=== PATIENT | male | born 1940 | race Caucasian/White ===

== ENCOUNTER 2020-09-16 13:20 | Inpatient (IN) ==
[2020-09-16] MEDS ORDERED: ONDANSETRON 4 MG/2 ML VIAL IV ONE ×2 (13:59→17:33)
[2020-09-16] MEDS: HYDROmorphone 0.5 MG/0.5 ML SYRINGE IV PRN ×4 (14:18→19:44)
[2020-09-16 14:23] LABS: Basophils # (Auto) 0.06 K/mcL (0.00-0.20); Basophils % (Auto) 0.5 % (0.0-2.0); Eosinophils # (Auto) 0.17 K/mcL (0.00-0.70); Eosinophils % (Auto) 1.4 % (0.0-7.0); Hematocrit 30.2 % (41.0-55.0); Lymphocytes # (Auto) 1.82 K/mcL (1.50-4.80); Lymphocytes % (Auto) 15.4 % (15.0-49.0); Mean Corpuscular HGB Conc 33.1 g/dL (31.0-36.0); Mean Platelet Volume 9.5 fL (7.4-10.4); Monocytes # (Auto) 0.79 K/mcL (0.10-0.90); Monocytes % (Auto) 6.7 % (1.0-12.0); Platelet Count 197 K/mcL (140-440); RBC 3.47 M/mcL (4.50-5.90); Red Cell Distribution Width 14.2 % (11.5-14.5); WBC 11.8 K/mcL (4.5-11.0)
[2020-09-16 14:30] LABS: POC Pro Time 34.4 sec (11.9-14.5)
[2020-09-16] MEDS ORDERED: 0.9 % SODIUM CHLORIDE 500 ML IV ONE ×2 (14:45→20:05)
[2020-09-16 14:46] LABS: ALT/SGPT 13 U/L (<40); AST/SGOT 18 U/L (<40); Albumin 2.9 gm/dL (3.2-5.2); Albumin/Globulin Ratio 0.9 (1.0-2.3); Alkaline Phosphatase 102 U/L (39-117); Bilirubin,Total 0.3 mg/dL (0.1-1.0); Blood Urea Nitrogen 80 mg/dL (8-23); Calcium 7.6 mg/dL (8.6-10.4); Carbon Dioxide 22 mmol/L (22-30); Chloride 86 mmol/L (96-108); Globulin 3.4 gm/dL (2.2-3.7); Glomerular Filtration Rate 3; Glucose 105 mg/dL (70-105)
[2020-09-16 14:56] LABS: Partial Thromboplastin Time 35.1 sec (20.0-37.0)
--- NOTE | 2020-09-16 15:54 | Emergency Department Note ---
Weakness HPI General Chief complaint: Weakness Stated complaint: weakness Time Seen by Provider: 09/16/20 13:48 Source: patient Mode of arrival: ambulatory Limitations: physical limitation History of Present Illness HPI Narrative: Narrative: Patient presents to the emergency room telling triage that he is weak, poor p.o., nausea and vomiting with some concern of having biopsies on his legs yesterday, etc. He tells me specifically that he has thrown up blood several times since 10 AM and did have a little bit of vomiting before that. He is running out of his pain medicines and complains of the pain in his legs as very severe and this is his primary complaint at the time of my interview. No fevers chills or sweats. He also has been somewhat shaky. He was using hydrocodone which he gets from Dr. Mercedes and I believe another physician as well and he has been needing them about every 4-6 hours but his last was early this morning. He reports being generally normally mobile at home. He does feel dry in the mouth and asked for some water. Related Data Home Medications Medication Instructions Recorded Confirmed amlodipine 5 mg PO BID 02/22/15 03/29/20 prednisone 5 mg PO DAILY 03/30/15 03/29/20 losartan 25 mg PO BID 05/27/19 03/29/20 clindamycin HCl 300 mg PO QID 03/29/20 03/29/20 tacrolimus 1 mg PO Q12H 03/29/20 03/29/20 Previous Rx's Medication Instructions Recorded oxycodone-acetaminophen 1 tab PO Q4H PRN #30 tab 06/02/19 B complex-vitamin C-folic acid 0.8 1 tab PO QDAY #90 tab 06/14/19 mg tablet gentamicin 0.1 % topical cream 1 applic TOPICAL DIRECTED #15 g 02/11/20 cephalexin [Keflex] 500 mg PO QID #40 cap 03/29/20 ondansetron HCl [Zofran] 4 mg PO Q6H PRN #20 tab 03/29/20 furosemide 80 mg tablet 80 mg PO QAM #90 tab 07/10/20 calcium acetate 667 mg tablet 667 mg PO TID #270 tab 09/13/20 Allergies Allergy/AdvReac Type Severity Reaction Status Date / Time Banana [BANANA] Allergy Severe Swollen Verified 03/31/20 09:18 Tongue edgar flavor [EDGAR FLAVOR] Allergy Severe Throat Verified 03/31/20 09:18 Swells Iodinated Contrast Media Allergy Severe RT EYE Verified 03/31/20 09:18 CAME OUT OF SOCKET/SEVERE HEADACHE mycophenolate mofetil Allergy Severe ACUTE Verified 03/31/20 09:18 [From CELLCEPT] RENAL FAILURE atorvastatin AdvReac Intermediate Nausea Verified 03/31/20 09:18 Review of Systems ROS ROS Narrative: Narrative: No fevers chills sweats Sometimes a little bit of blurry vision but no double vision No sore throat or runny nose No chest pain No cough or shortness of breath No nausea vomiting diarrhea. 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 He does have multiple skin lesions with multiple skin cancers. He cannot remember which kind. He had biopsies on his legs recently No headaches. He does feel weak and dizzy and lightheaded around the time of the vomiting especially Denies anxiety and depression. 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) ESRD (end stage renal disease) on dialysis (Chronic) Medical History (Updated 09/16/20 @ 19:27 by Óscar Ndiaye DO) Dialysis patient (Chronic) Surgical History History of heart transplant (Acute) 2005 History of open heart surgery (Acute) History of surgery (Acute) "tawanna in leg" History of surgery (Acute) HD cath placement PD cath placement History of surgery (Acute) 06/02/2019-removal of tunneled dialysis catheter History of surgery (Acute) 06/02/2019-removal of HD catheter left subclavian No pertinent past surgical history (Inactive) Family History Heart disease Father Mother Hypertension Mother Social History Smoking Status: Never smoker Alcohol Intake Frequency: does not drink Substance Use: does not use Exam Narrative Narrative: Narrative: General Limitations: physical limitation General appearance: Present alert, cachectic, in no apparent distress, nontoxic and other (Somewhat pasty ashen general appearance but he is interactive and alert without distress.) Head Head: Present atraumatic and normocephalic Eye Eye: Present normal appearance, PERRL and EOMI ENT ENT: Present normal oropharynx and mucous membranes dry Neck Neck: Present trachea midline; Absent lymphadenopathy and thyromegaly Chest Chest: Present symmetric chest wall rise Respiratory Respiratory: Present normal lung sounds bilaterally; Absent respiratory di stress, rales/crackles, wheezes, stridor, accessory muscle use and prolonged expiratory phase Cardiovascular Cardiovascular: Present regular rate and normal rhythm; Absent systolic murmur and diastolic murmur Adbominal Abdominal: Present soft and other (Peritoneal dialysis cath in the right lower quadrant a little bit right of midline.); Absent distention, tenderness, guarding, rebound, rigidity, organomegaly and mass Extremities Extremities: Present other (Both lower extremities were moderately tightly wrapped. Bandages were removed. He has blue foam/gauze adherent to proximately 4-5 different biopsy sites or wounds/skin lesions. No surrounding erythema or swelling. No unusual warmth. No pitting edema that is visible currently.); Absent pedal edema, pretibial edema, calf tenderness and cyanosis Back Back: Absent CVA tenderness (R), CVA tenderness (L) and spinous process tenderness Neurological Neurological: Present alert and oriented X3 Psychiatric Psychiatric: Present normal affect and serious; Absent depressed, agitated, anxious and poor eye contact Skin Skin: Present cool and dry; Absent cyanosis and pallor Course Vital Signs Vital signs: Vital Signs Temperature 97.5 F 09/16/20 13:21 Pulse Rate 90 09/16/20 13:21 Respiratory Rate 18 09/16/20 13:21 Blood Pressure 156/81 09/16/20 13:21 Pulse Oximetry (%) 99 01/23/21 13:21 Temperature 97.5 F 09/16/20 13:21 Pulse Rate 86 09/16/20 18:53 Respiratory Rate 16 09/16/20 18:53 Blood Pressure 138/76 09/16/20 18:01 Pulse Oximetry (%) 94 09/16/20 18:53 MDM MDM Narrative Medical decision making narrative: Narrative: 1:50 PM - interviewed and examined. Quite with it but complaining of a lot of pain. I am okay and going ahead with pain medication for his lower extremities. His legs were unwrapped and we did find multiple sites that appeared to have had recent biopsies were small ulcers. No edema. It seemed that the bandages were a significant amount of tightness. They will be rewrapped. With gross hematochezia several times will do multiple labs as well and coags. EKG demonstrates sinus rhythm around 88 bpm. No ACS. Borderline prolonged QTC. Labs include an anemia of 10.0 and 30.2. Mild hyponatremia of 129. Severely elevated creatinine at 13.4. INR elevated at 3.0. Lactic acid normal at 1.5. LFTs again normal. Total protein is normal at 6.3 which is mid range. Albumin mildly low at 2.9 (3.2-5.2). Globulin midrange at 3.4. Lipase normal at 22. Several hours later a repeat hematocrit is 28 showing some decrease. I thought this was after 500 cc of infused normal saline but I was corrected by nursing staff that because he would not keep his arm straight he only had 100 cc infused. He had additional nausea. Early on was given ondansetron an initial dose (in his first hour after arriving). This seemed to be fairly helpful. Several hours later additional nausea and near retching started again. Promethazine 12.5 was given. 4:45 PM - I spoke with Dr. Luna, bpm analyst, on-call for Dr. Keller. He has reviewed the chart. Patient recently saw Dr. Keller and had very severe hyp erparathyroidism (level around 1999) and Dr. Keller had ordered additional calcitriol and ordered an increase of the Sensipar from 30 every other day to daily. He inquired about patient's potassium which is normal at 4.0. He indicates that if patient is stable in every other way, the creatinine is not the driver material handler that he has to be admitted. If he needs to be admitted for other purposes that is ok and dialysis options could be reconsidered. The hyperparathyroidism could explain some of the abdominal discomforts. On Friday patient and/or his are to call to get in with the peritoneal dialysis to problem solve and/or determine additional steps. 5:00 PM -I spoke with the hospitalist, regarding patient's elevated INR. He asked about medications, cirrhosis, supplements etc. We did not come to the conclusion as to the potential contributing cause or source for his elevated INR. 5:22 PM - spoke with patient's , Tatiana, . * She reports that he usually is quite faithful with his peritoneal dialysis but was unable to do it last p.m. due to his discomforts and vomiting. He usually runs it for 10-1/2 hours and uses 4.5 alternating 4.25 in volume. * She is unaware of a medication from [facility], as she is the one who picks up his medications from the pharmacy and there were no other medications pending that she was aware of. (Patient indicated that there was one that they did not have in stock and were going to get.) So it appears that he has not been taking any Sensipar at this point in time. * She also is certain that he does not take any blood thinners. * She is concerned or has been concerned at times about him taking too much hydrocodone for the pain in his legs. He does not get regular hydrocodone's but he had been prescribed by Mindy after having the multiple biopsies on his legs and etc. She actually took them away from him to try to ration them out a little bit more as she was concerned about the Tylenol because he also takes large amounts of Tylenol. She does not know exactly how much he has been taking. * Regarding his leg pains she also reports that it was thought to be neuropathy at one point and he was on gabapentin but it lowered his blood pressure too much. He has not been tried on Lyrica. 5:41 PM - patient continued to have episodes that include some retching and nausea. He did have some bilious to very dark emesis. I will go ahead and repeat a POC Chem-8 to see the hematocrit. This will be the third blood test of stability there. A repeat dose of ondansetron given. 5:54 PM - with patient's elevated acetaminophen intake, review of the above, will add acetaminophen level. 6:03 PM - repeat INR, POC, 1.4. This is peculiar with the previous one of 3.0. Chart review from information received from what appears to be the wound clinic or dermatology clinic at [facility] included * positive for oxacillin resistant staph aureus on a wound or skin culture (pr esumably of the legs). = MRSA * C-reactive protein mildly elevated at 2.6. ESR elevated at 66. * Uric acid 6.1 * Prealbumin 29.3 * TSH elevated at 2.4. * A1c elevated at 5.3 * Lipid panel with a low HDL of 30, total cholesterol 146, triglycerides 188 and LDL of 179 * WBC normal at 10.8. Hemoglobin 10.6, hematocrit 33.6, platelet count 198. * Creatinine 13.3. Previous 1 in this record was from 02 June and was 10.2. * Carbon dioxide normal at 23. Anion gap elevated mildly at 19. * Calcium suppressed at 7.6. Total protein, albumin, globulin similar to today here. * LFTs, bilirubin, alkaline phosphatase, all similar to previous and normal. 7:06 PM - spoke with hospitalist, Dr. Tena, who asked for clarification from the bpm analyst whether or not peritoneal dialysis is adequate to help with his uremia. I spoke with Dr. Luna who believes that the peritoneal dialysis is adequate and he will put in orders for peritoneal dialysis. He will order the Sensipar. We (ED or hospitalist) will be in charge of ordering tacrolimus/Prograf (ordered). I asked about his muscle cramps. If we do not have quinine then there is not a whole lot. Calcium can be tried and I will order Tums 1000 mg once. Lab Data Result diagrams: 09/16/20 13:40 09/16/20 13:40 Labs: Lab Results 09/16/20 09/16/20 09/16/20 Range/Units 13:40 13:40 13:40 WBC 11.8 H (4.5-11.0) K/mcL RBC 3.47 L (4.50-5.90) M/mcL Hgb 10.0 L (13.5-16.5) g/dL Hct 30.2 L (41.0-55.0) % POC Hct (41-55) % MCV 87.0 (80.0-100.0) fL MCH 28.8 (26.0-34.0) pg MCHC 33.1 (31.0-36.0) g/dL RDW 14.2 (11.5-14.5) % Plt Count 197 (140-440) K/mcL MPV 9.5 (7.4-10.4) fL Neut % (Auto) 76.0 (38.0-78.0) % Lymph % (Auto) 15.4 (15.0-49.0) % Kimball % (Auto) 6.7 (1.0-12.0) % Eos % (Auto) 1.4 (0.0-7.0) % Baso % (Auto) 0.5 (0.0-2.0) % Lymph # (Auto) 1.82 (1.50-4.80) K/mcL Kimball # (Auto) 0.79 (0.10-0.90) K/mcL Eos # (Auto) 0.17 (0.00-0.70) K/mcL Baso # (Auto) 0.06 (0.00-0.20) K/mcL Absolute Neutrophils 8.99 H (1.80-8.00) K/mcL POC PT (11.9-14.5) sec POC INR (0.8-1.2) APTT (20.0-37.0) sec VBG Lactic Acid 1.5 (0.5-2.0) mmol/L POC Sodium (133-145) mEq/L Sodium 129 L (133-145) mmol/L POC Potassium (3.3-5.1) mEql/L Potassium 4.0 (3.3-5.1) mmol/L POC Chloride (96-108) mEq/L Chloride 86 L (96-108) mmol/L Carbon Dioxide 22 (22-30) mmol/L POC Total CO2 (22-30) mmol/L Anion Gap 21.0 H (8.0-16.0) POC BUN (6-20) mg/dL BUN 80 H (8-23) mg/dL Creatinine 13.4 H* (0.7-1.2) mg/dL POC Creatinine (0.6-1.2) mg/dL GFR Calculation 3 Glucose 105 (70-105) mg/dL POC Glucose (70-105) mg/dL Calcium 7.6 L (8.6-10.4) mg/dL POC WB Ioniz Calcium (1.16-1.32) mmEq/L Total Bilirubin 0.3 (0.1-1.0) mg/dL AST 18 (<40) U/L ALT 13 (<40) U/L Alkaline Phosphatase 102 (39-117) U/L Troponin T (<0.03) ng/mL Total Protein 6.3 (5.9-8.4) gm/dL Albumin 2.9 L (3.2-5.2) gm/dL Globulin 3.4 (2.2-3.7) gm/dL Albumin/Globulin Ratio 0.9 L (1.0-2.3) Lipase (7-60) U/L Acetaminophen ug/mL 09/16/20 09/16/20 09/16/20 Range/Units 13:40 13:40 13:40 WBC (4.5-11.0) K/mcL RBC (4.50-5.90) M/mcL Hgb (13.5-16.5) g/dL Hct (41.0-55.0) % POC Hct (41-55) % MCV (80.0-100.0) fL MCH (26.0-34.0) pg MCHC (31.0-36.0) g/dL RDW (11.5-14.5) % Plt Count (140-440) K/mcL MPV (7.4-10.4) fL Neut % (Auto) (38.0-78.0) % Lymph % (Auto) (15.0-49.0) % Kimball % (Auto) (1.0-12.0) % Eos % (Auto) (0.0-7.0) % Baso % (Auto) (0.0-2.0) % Lymph # (Auto) (1.50-4.80) K/mcL Kimball # (Auto) (0.10-0.90) K/mcL Eos # (Auto) (0.00-0.70) K/mcL Baso # (Auto) (0.00-0.20) K/mcL Absolute Neutrophils (1.80-8.00) K/mcL POC PT 34.4 H (11.9-14.5) sec POC INR 3.0 H (0.8-1.2) APTT 35.1 (20.0-37.0) sec VBG Lactic Acid (0.5-2.0) mmol/L POC Sodium (133-145) mEq/L Sodium (133-145) mmol/L POC Potassium (3.3-5.1) mEql/L Potassium (3.3-5.1) mmol/L POC Chloride (96-108) mEq/L Chloride (96-108) mmol/L Carbon Dioxide (22-30) mmol/L POC Total CO2 (22-30) mmol/L Anion Gap (8.0-16.0) POC BUN (6-20) mg/dL BUN (8-23) mg/dL Creatinine (0.7-1.2) mg/dL POC Creatinine (0.6-1.2) mg/dL GFR Calculation Glucose (70-105) mg/dL POC Glucose (70-105) mg/dL Calcium (8.6-10.4) mg/dL POC WB Ioniz Calcium (1.16-1.32) mmEq/L Total Bilirubin (0.1-1.0) mg/dL AST (<40) U/L ALT (<40) U/L Alkaline Phosphatase (39-117) U/L Troponin T 0.11 H* (<0.03) ng/mL Total Protein (5.9-8.4) gm/dL Albumin (3.2-5.2) gm/dL Globulin (2.2-3.7) gm/dL Albumin/Globulin Ratio (1.0-2.3) Lipase 22 (7-60) U/L Acetaminophen ug/mL 09/16/20 09/16/20 09/16/20 Range/Units 13:40 16:10 18:00 WBC (4.5-11.0) K/mcL RBC (4.50-5.90) M/mcL Hgb (13.5-16.5) g/dL Hct (41.0-55.0) % POC Hct 28 L (41-55) % MCV (80.0-100.0) fL MCH (26.0-34.0) pg MCHC (31.0-36.0) g/dL RDW (11.5-14.5) % Plt Count (140-440) K/mcL MPV (7.4-10.4) fL Neut % (Auto) (38.0-78.0) % Lymph % (Auto) (15.0-49.0) % Kimball % (Auto) (1.0-12.0) % Eos % (Auto) (0.0-7.0) % Baso % (Auto) (0.0-2.0) % Lymph # (Auto) (1.50-4.80) K/mcL Kimball # (Auto) (0.10-0.90) K/mcL Eos # (Auto) (0.00-0.70) K/mcL Baso # (Auto) (0.00-0.20) K/mcL Absolute Neutrophils (1.80-8.00) K/mcL POC PT 16.2 H (11.9-14.5) sec POC INR 1.4 H (0.8-1.2) APTT (20.0-37.0) sec VBG Lactic Acid (0.5-2.0) mmol/L POC Sodium 128 L (133-145) mEq/L Sodium (133-145) mmol/L POC Potassium 4.2 (3.3-5.1) mEql/L Potassium (3.3-5.1) mmol/L POC Chloride 89 L (96-108) mEq/L Chloride (96-108) mmol/L Carbon Dioxide (22-30) mmol/L POC Total CO2 26 (22-30) mmol/L Anion Gap (8.0-16.0) POC BUN 95 H (6-20) mg/dL BUN (8-23) mg/dL Creatinine (0.7-1.2) mg/dL POC Creatinine 13.9 H* (0.6-1.2) mg/dL GFR Calculation Glucose (70-105) mg/dL POC Glucose 102 (70-105) mg/dL Calcium (8.6-10.4) mg/dL POC WB Ioniz Calcium 0.88 L (1.16-1.32) mmEq/L Total Bilirubin (0.1-1.0) mg/dL AST (<40) U/L ALT (<40) U/L Alkaline Phosphatase (39-117) U/L Troponin T (<0.03) ng/mL Total Protein (5.9-8.4) gm/dL Albumin (3.2-5.2) gm/dL Globulin (2.2-3.7) gm/dL Albumin/Globulin Ratio (1.0-2.3) Lipase (7-60) U/L Acetaminophen 12.3 ug/mL 09/16/20 Range/Units 18:00 WBC (4.5-11.0) K/mcL RBC (4.50-5.90) M/mcL Hgb (13.5-16.5) g/dL Hct (41.0-55.0) % POC Hct 29 L (41-55) % MCV (80.0-100.0) fL MCH (26.0-34.0) pg MCHC (31.0-36.0) g/dL RDW (11.5-14.5) % Plt Count (140-440) K/mcL MPV (7.4-10.4) fL Neut % (Auto) (38.0-78.0) % Lymph % (Auto) (15.0-49.0) % Kimball % (Auto) (1.0-12.0) % Eos % (Auto) (0.0-7.0) % Baso % (Auto) (0.0-2.0) % Lymph # (Auto) (1.50-4.80) K/mcL Kimball # (Auto) (0.10-0.90) K/mcL Eos # (Auto) (0.00-0.70) K/mcL Baso # (Auto) (0.00-0.20) K/mcL Absolute Neutrophils (1.80-8.00) K/mcL POC PT (11.9-14.5) sec POC INR (0.8-1.2) APTT (20.0-37.0) sec VBG Lactic Acid (0.5-2.0) mmol/L POC Sodium 128 L (133-145) mEq/L Sodium (133-145) mmol/L POC Potassium 4.1 (3.3-5.1) mEql/L Potassium (3.3-5.1) mmol/L POC Chloride 89 L (96-108) mEq/L Chloride (96-108) mmol/L Carbon Dioxide (22-30) mmol/L POC Total CO2 25 (22-30) mmol/L Anion Gap (8.0-16.0) POC BUN 94 H (6-20) mg/dL BUN (8-23) mg/dL Creatinine (0.7-1.2) mg/dL POC Creatinine 14.0 H* (0.6-1.2) mg/dL GFR Calculation Glucose (70-105) mg/dL POC Glucose 105 (70-105) mg/dL Calcium (8.6-10.4) mg/dL POC WB Ioniz Calcium 0.89 L (1.16-1.32) mmEq/L Total Bilirubin (0.1-1.0) mg/dL AST (<40) U/L ALT (<40) U/L Alkaline Phosphatase (39-117) U/L Troponin T (<0.03) ng/mL Total Protein (5.9-8.4) gm/dL Albumin (3.2-5.2) gm/dL Globulin (2.2-3.7) gm/dL Albumin/Globulin Ratio (1.0-2.3) Lipase (7-60) U/L Acetaminophen ug/mL Discharge Plan Patient/Caregiver Discharge Instructions Pt seen by INSIDE SOLAR SALES CONSULTANT/PA only: No Clinical Impression: Hematemesis with nausea, Elevated INR, Accidental acetaminophen overdose, Bilateral leg pain, Immunosuppressed status, MRSA (methicillin resistant staph aureus) culture positive, Bilateral leg cramps Patient Disposition: Xfer As Inpt ([facility]) Follow up with: Mainor Mercedes MD [Primary Care Provider] - Prescriptions: No Action Dialyvite 800 0.8 mg tablet 1 tab PO QDAY Qty: 90 RF: 4 gentamicin 0.1 % cream 1 applic TOPICAL DIRECTED Qty: 15 RF: 11 furosemide 80 mg tablet 80 mg PO QAM Qty: 90 RF: 4 calcium acetate 667 mg tablet 667 mg PO TID Qty: 270 RF: 4 amlodipine 2.5 MG tablet 5 mg PO BID RF: 0 prednisone 5 MG tablet 5 mg PO DAILY RF: 0 losartan 25 MG tablet 25 mg PO BID RF: 0 oxycodone-acetaminophen 1 TAB tablet 1 tab PO Q4H PRN (Reason: Pain) Qty: 30 RF: 0 clindamycin HCl 300 mg Capsule 300 mg PO QID RF: 0 tacrolimus 0.5 mg Capsule 1 mg PO Q12H RF: 0 cephalexin [Keflex] 500 mg capsule 500 mg PO QID Qty: 40 RF: 0 ondansetron HCl [Zofran] 4 mg tablet 4 mg PO Q6H PRN (Reason: nausea and vomiting) Qty: 20 RF: 0
[2020-09-16] MEDS ORDERED: PROMETHAZINE 25 MG/ML VIAL IV ONE (16:10)
[2020-09-16 16:25] LABS: POC Blood Urea Nitrogen 95 mg/dL (6-20); POC CO2 26 mmol/L (22-30); POC Calcium, Ionized 0.88 mmEq/L (1.16-1.32); POC Chloride 89 mEq/L (96-108); POC Creatinine 13.9 mg/dL (0.6-1.2); POC Glucose, Random 102 mg/dL (70-105); POC Hematocrit 28 % (41-55); POC Potassium 4.2 mEql/L (3.3-5.1); POC Sodium 128 mEq/L (133-145)
[2020-09-16 18:18] LABS: POC Blood Urea Nitrogen 94 mg/dL (6-20); POC CO2 25 mmol/L (22-30); POC Calcium, Ionized 0.89 mmEq/L (1.16-1.32); POC Chloride 89 mEq/L (96-108); POC Glucose, Random 105 mg/dL (70-105); POC Hematocrit 29 % (41-55); POC INR 1.4 (0.8-1.2); POC Potassium 4.1 mEql/L (3.3-5.1); POC Pro Time 16.2 sec (11.9-14.5); POC Sodium 128 mEq/L (133-145)
[2020-09-16] MEDS ORDERED: CALCIUM CARBONATE 500 MG TAB.CHEW CHEWED ONE (19:24)
[2020-09-16] MEDS ORDERED: ONDANSETRON 4 MG/2 ML VIAL IV PRN (20:05)
[2020-09-16] MEDS ORDERED: oxyCODONE HCL 5 MG TABLET PO PRN (20:05)
[2020-09-16] MEDS ORDERED: HYDROmorphone 0.5 MG/0.5 ML SYRINGE IV PRN (20:05)
--- NOTE | 2020-09-16 20:52 | Internal Med History&Physical ---
HPI History of Present Illness Patient information: Note initiated : 09/16/20 at 8:22 pm Service Date, if different from initiated Date: [] Patient: Jony Marie a 79 y/o M admitted on for weakness. Chief Complaint: [leg pain] History of present illness: Mr. 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 The patient also reported seeing blood in his vomitus. The patient primary concern is lower extremity pain which is most severe at the site of the nonhealing wound in high right calf. He has been taking oral oxycodone-acetaminophen for the pain. When I saw the patient he had recently received IV opioids and was trying to sleep. He also does not know his medications well and referred me to discuss them with his . I tried to call his a couple times on the night of admission but there was no answer. In the ED the patient had stable vitals, laboratory workup was remarkable for mild leukocytosis, slight downward trend of hemoglobin compared to prior labs, low sodium, elevated troponin (.11). EKG does not show any acute ischemic changes. Tylenol level is not elevated. The patient was admitted for intractable nausea and vomiting, pain management and workup in possible causes of these symptoms. Review of Systems All systems: reviewed and no additional remarkable complaints except as stated Constitutional Constitutional: Present anorexia and weakness Cardiovascular Cardiovascular: Present leg ulcers; Absent chest pain, dyspnea and edema Respiratory Respiratory: Absent cough and dyspnea Gastrointestinal Gastrointestinal: Present hematemesis, nausea and vomiting Integumentary Integumentary: Present non-healing lesions and skin ulcer Neurological Neurological: Present paresthesias and sensory deficit; Absent abnormal speech PFSH PFSH All Active Problems (Updated 09/16/20 @ 19:27 by Óscar Ndiaye DO) Cellulitis of left leg (Acute) Hematemesis with nausea (Acute) Elevated INR (Acute) Accidental acetaminophen overdose (Acute) Bilateral leg pain (Acute) Immunosuppressed status (Acute) MRSA (methicillin resistant staph aureus) culture positive (Acute) Bilateral leg cramps (Acute) Dialysis patient (Chronic) CHF (congestive heart failure) (Chronic) Heart transplant status (Chronic) 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 (Chronic) ESRD (end stage renal disease) on dialysis (Chronic) Medical History (Updated 09/16/20 @ 19:27 by Óscar Ndiaye DO) Dialysis patient (Chronic) Surgical History History of heart transplant (Acute) 2005 History of open heart surgery (Acute) History of surgery (Acute) "tawanna in leg" History of surgery (Acute) HD cath placement PD cath placement History of surgery (Acute) 06/02/2019-removal of tunneled dialysis catheter History of surgery (Acute) 06/02/2019-removal of HD catheter left subclavian No pertinent past surgical history (Inactive) Family History Father Heart disease Mother Heart disease Hypertension Social History (Updated 06/21/19 @ 16:21 by Qian Turk MD) smoking status: Never smoker alcohol intake frequency: does not drink substance use type: does not use MEDS/ALLERGIES Home Medications and Allergies Home Medications Medication Instructions Recorded Confirmed Type amlodipine 5 mg PO BID 02/22/15 03/29/20 History prednisone 5 mg PO DAILY 03/30/15 03/29/20 History losartan 25 mg PO BID 05/27/19 03/29/20 History oxycodone-acetaminophen 1 tab PO Q4H PRN #30 tab 06/02/19 03/29/20 Rx B complex-vitamin C-folic acid 0.8 1 tab PO QDAY #90 tab 06/14/19 03/29/20 Rx mg tablet gentamicin 0.1 % topical cream 1 applic TOPICAL DIRECTED #15 g 02/11/20 03/29/20 Rx cephalexin [Keflex] 500 mg PO QID #40 cap 03/29/20 Rx clindamycin HCl 300 mg PO QID 03/29/20 03/29/20 History ondansetron HCl [Zofran] 4 mg PO Q6H PRN #20 tab 03/29/20 Rx tacrolimus 1 mg PO Q12H 03/29/20 03/29/20 History furosemide 80 mg tablet 80 mg PO QAM #90 tab 07/10/20 Rx calcium acetate 667 mg tablet 667 mg PO TID #270 tab 09/13/20 Rx Allergies Allergy/AdvReac Type Severity Reaction Status Date / Time Banana [BANANA] Allergy Severe Swollen Verified 03/31/20 09:18 Tongue edgar flavor [EDGAR FLAVOR] Allergy Severe Throat Verified 03/31/20 09:18 Swells Iodinated Contrast Media Allergy Severe RT EYE Verified 03/31/20 09:18 CAME OUT OF SOCKET/SEVERE HEADACHE mycophenolate mofetil Allergy Severe ACUTE Verified 03/31/20 09:18 [From CELLCEPT] RENAL FAILURE atorvastatin AdvReac Intermediate Nausea Verified 03/31/20 09:18 EXAM Constitutional Vitals: Temp Pulse Resp BP Pulse Ox 97.5 F 86 21 109/74 94 09/16/20 13:21 09/16/20 20:01 09/16/20 20:01 09/16/20 20:01 09/16/20 20:01 Head Head exam: Present atraumatic and normal inspection Eye Eye exam: Present normal appearance; Absent scleral icterus Pupils: Absent mydriatic ENT ENT exam: Present mucous membranes dry Neck Neck exam: Present full ROM Respiratory Respiratory exam: Absent accessory muscle use and respiratory distress Cardiovascular Cardiovascular exam: Present normal rate and rhythm, +S1 and +S2 GI/Abdominal GI/Abdominal exam: Present soft; Absent distended and rebound Extremities Exam Extremities exam: Present full ROM and tenderness Additional comments: chronic appearing wound on right calf Neurological Exam Neurological exam: Present alert and oriented X3 Psychiatric Psychiatric exam: Present anxious, normal affect and normal mood Skin Skin exam: Present erythema Additional comments: chronic skin lesions scattered throughout likely malignant, nonhealing wounds on right calf DATA Data Completed and Pending Labs: Labs from last 24 hours 09/16/20 09/16/20 09/16/20 18:00 18:00 16:10 WBC RBC Hgb Hct POC Hct 29 L 28 L MCV MCH MCHC RDW Plt Count MPV Neut % (Auto) Lymph % (Auto) [place] % (Auto) Eos % (Auto) Baso % (Auto) Lymph # (Auto) [place] # (Auto) Eos # (Auto) Baso # (Auto) Absolute Neutrophils POC PT 16.2 H POC INR 1.4 H APTT VBG Lactic Acid POC Sodium 128 L 128 L Sodium POC Potassium 4.1 4.2 Potassium POC Chloride 89 L 89 L Chloride Carbon Dioxide POC Total CO2 25 26 Anion Gap POC BUN 94 H 95 H BUN Creatinine POC Creatinine 14.0 H* 13.9 H* GFR Calculation Glucose POC Glucose 105 102 Calcium POC WB Ioniz Calcium 0.89 L 0.88 L Total Bilirubin AST ALT Alkaline Phosphatase Troponin T Total Protein Albumin Globulin Albumin/Globulin Ratio Lipase Acetaminophen 09/16/20 09/16/20 09/16/20 13:40 13:40 13:40 WBC RBC Hgb Hct POC Hct MCV MCH MCHC RDW Plt Count MPV Neut % (Auto) Lymph % (Auto) [place] % (Auto) Eos % (Auto) Baso % (Auto) Lymph # (Auto) [place] # (Auto) Eos # (Auto) Baso # (Auto) Absolute Neutrophils POC PT 34.4 H POC INR 3.0 H APTT 35.1 VBG Lactic Acid POC Sodium Sodium POC Potassium Potassium POC Chloride Chloride Carbon Dioxide POC Total CO2 Anion Gap POC BUN BUN Creatinine POC Creatinine GFR Calculation Glucose POC Glucose Calcium POC WB Ioniz Calcium Total Bilirubin AST ALT Alkaline Phosphatase Troponin T Total Protein Albumin Globulin Albumin/Globulin Ratio Lipase 22 Acetaminophen 12.3 09/16/20 09/16/20 09/16/20 13:40 13:40 13:40 WBC RBC Hgb Hct POC Hct MCV MCH MCHC RDW Plt Count MPV Neut % (Auto) Lymph % (Auto) [place] % (Auto) Eos % (Auto) Baso % (Auto) Lymph # (Auto) [place] # (Auto) Eos # (Auto) Baso # (Auto) Absolute Neutrophils POC PT POC INR APTT VBG Lactic Acid 1.5 POC Sodium Sodium 129 L POC Potassium Potassium 4.0 POC Chloride Chloride 86 L Carbon Dioxide 22 POC Total CO2 Anion Gap 21.0 H POC BUN BUN 80 H Creatinine 13.4 H* POC Creatinine GFR Calculation 3 Glucose 105 POC Glucose Calcium 7.6 L POC WB Ioniz Calcium Total Bilirubin 0.3 AST 18 ALT 13 Alkaline Phosphatase 102 Troponin T 0.11 H* Total Protein 6.3 Albumin 2.9 L Globulin 3.4 Albumin/Globulin Ratio 0.9 L Lipase Acetaminophen 09/16/20 13:40 WBC 11.8 H RBC 3.47 L Hgb 10.0 L Hct 30.2 L POC Hct MCV 87.0 MCH 28.8 MCHC 33.1 RDW 14.2 Plt Count 197 MPV 9.5 Neut % (Auto) 76.0 Lymph % (Auto) 15.4 [place]eton % (Auto) 6.7 Eos % (Auto) 1.4 Baso % (Auto) 0.5 Lymph # (Auto) 1.82 [place] # (Auto) 0.79 Eos # (Auto) 0.17 Baso # (Auto) 0.06 Absolute Neutrophils 8.99 H POC PT POC INR APTT VBG Lactic Acid POC Sodium Sodium POC Potassium Potassium POC Chloride Chloride Carbon Dioxide POC Total CO2 Anion Gap POC BUN BUN Creatinine POC Creatinine GFR Calculation Glucose POC Glucose Calcium POC WB Ioniz Calcium Total Bilirubin AST ALT Alkaline Phosphatase Troponin T Total Protein Albumin Globulin Albumin/Globulin Ratio Lipase Acetaminophen A/P Narrative A/P Narrative: ASSESSMENT: 79 year old male with a history of cardiac transplant (on tacrolimus and prednisone), ESRD on peritoneal dialysis, multiple skin cancers (likely related to immunosuppression), nonhealing lower extremity wounds of uncertain etiology s/p recent biopsy (pending pathology report), chronic lower extremity pain (on oral opioid) who presented to the ED for lower extremity pain and intractable nausea and vomiting. The cause of the patient's pain seems to be the lower extremity wounds, most severe in the right calf. The cause of the nausea and vomiting is uncertain- differential includes uremia vs opioid withdrawal vs occult infection vs silent NC (cardiac transplant), vs other? #Intractable nausea and vomiting #Reported hematemesis #Anemia-chronic #Severe lower extremity pain #Nonhealing lower extremity wounds-recently biopsied #ESRD-on peritoneal dialysis #Hx of cardiac transplant-on tacrolimus and prednisone #Immunosuppression #Leukocytosis #Peripheral vascular disease #Skin cancer PLAN -Antiemetics prn w/ IVF bolus -Follow H/H and WBC -Follow troponin -Blood cultures -Analgesics prn -SAYDA screen for lower arterial insufficiency -Wound cares -Peritoneal dialysis per nephrology -Tacrolimus level in AM -Restart home meds when doses confirmed -Monitor for opioid withdrawal -Full code Time Spent With Patient Time: Total time spent is greater than 50% in coordination of care (as documented) at patient's floor/unit and/or counseling patient: 75 minutes
[2020-09-16] MEDS ORDERED: TACROLIMUS 0.5 MG CAPSULE PO SCH (21:00)
[2020-09-16] MEDS: SENNOSIDES 1 TABLET PO SCH (22:46)
[2020-09-16] MEDS: DOCUSATE SODIUM 100 MG CAPSULE PO SCH (22:46)
[2020-09-17] MEDS: 0.9 % SODIUM CHLORIDE 10 ML SYRINGE IV SCH ×3 (04:00→20:22)
[2020-09-17 07:12] LABS: Hematocrit 32.8 % (41.0-55.0); Hemoglobin 10.4 g/dL (13.5-16.5); Mean Cell Volume 89.6 fL (80.0-100.0); Mean Corpuscular HGB Conc 31.7 g/dL (31.0-36.0); Mean Platelet Volume 9.3 fL (7.4-10.4); Platelet Count 211 K/mcL (140-440); RBC 3.66 M/mcL (4.50-5.90); Red Cell Distribution Width 14.2 % (11.5-14.5); WBC 16.6 K/mcL (4.5-11.0)
[2020-09-17 07:36] LABS: ALT/SGPT 12 U/L (<40); AST/SGOT 16 U/L (<40); Alkaline Phosphatase 96 U/L (39-117); Bilirubin,Direct < 0.2 mg/dL (<0.3); Bilirubin,Total 0.2 mg/dL (0.1-1.0); Blood Urea Nitrogen 83 mg/dL (8-23); Calcium 8.2 mg/dL (8.6-10.4); Carbon Dioxide 19 mmol/L (22-30); Chloride 88 mmol/L (96-108); Globulin 2.9 gm/dL (2.2-3.7); Glomerular Filtration Rate 4; Glucose 147 mg/dL (70-105); Lactate Dehydrogenase 234 U/L (135-225); Phosphorous 8.4 mg/dL (2.5-4.5); Triglycerides 143 mg/dL (<150); Uric Acid 5.8 mg/dL (2.5-8.0)
[2020-09-17 07:42] LABS: Lymphocytes % 5 % (15-49); Monocytes % (Manual) 9 % (1-12); Platelet Estimate NORMAL (Normal); RBC Morphology NORMAL (Normal); Segmented Neutrophils % 86 % (38-78)
[2020-09-17] MEDS: CINACALCET 30 MG TABLET PO SCH (08:00)
[2020-09-17] MEDS ORDERED: DARBEPOETIN ALFA 100 MCG/ML VIAL SQ ONE (09:00)
[2020-09-17] MEDS ORDERED: PANTOPRAZOLE 40 MG VIAL IV ONE (09:52)
[2020-09-17] MEDS: DOCUSATE SODIUM 100 MG CAPSULE PO SCH ×2 (10:09→20:22)
[2020-09-17 10:55] LABS: Monocyte,Peritoneal Fluid 59 %; Neutrophils,Peritoneal Fluid 6 %; Nucleated Cel,Peritoneal Fluid 46 /cumm
[2020-09-17] MEDS ORDERED: GENTAMICIN CRM 0.1% TUBE 15GM TOPICAL PRN (12:15)
[2020-09-17] MEDS ORDERED: TACROLIMUS 0.5 MG CAPSULE PO SCH (12:15)
[2020-09-17] MEDS ORDERED: oxyCODONE HCL 5 MG TABLET PO PRN (12:17)
[2020-09-17] MEDS ORDERED: TACROLIMUS 0.5 MG CAPSULE PO ONE (12:59)
[2020-09-17] MEDS ORDERED: TACROLIMUS 1 MG CAPSULE PO ONE (13:15)
[2020-09-17] MEDS: PREGABALIN 25 MG CAPSULE PO SCH (13:17)
[2020-09-17] MEDS: predniSONE 5 MG TABLET PO SCH (13:18)
[2020-09-17] MEDS: PROCHLORPERAZINE 10 MG/2 ML VIAL IV PRN ×2 (13:31→23:30)
--- NOTE | 2020-09-17 14:52 | Nephrology Consult Note ---
HPI Data of Consult Primary Care Provider: Mainor Mercedes Consult Narrative Patient Information: Note initiated : 09/17/20 at 2:47 pm Service Date, if different from initiated Date: [] Patient: Jony Marie 79 y/o M admitted on 09/16/20 for weakness. Chief Complaint: [Nausea, vomiting blood] cc:: CC: Nick Tena MD Pt is a 79 yr old male with ESRD on home NIPD followed by Dr Salvador Keller. 2006: Heart Tx for ischemic cardiomyopathy. 2018: ESRD with acclerated HTN and poor compliance in run up to ESRD...Needed an acute HD cahteter but vascular access ocean transportation intermediary difficult due to prior surgeries, cental venous catheter etc so transitioned from HHD to Home NIPD in 2019 2020: CT IMPRESSION: 1. Severe calcified atherosclerotic disease. Probable stenoses at the origins of the celiac trunk and superior mesenteric artery. Clinical correlation for symptoms of mesenteric ischemia recommended. 2. Nonobstructing left renal calculus. Bilateral renal cysts 3. Multiple calcified gallstones 2019: Prior Stress Echo Last seen in [facility] clinic 1 wk [employer]. At that time the patient reported adbominal pain, appeared to be adequately dialyzed and changes where made to correct hyperparathyroidism. To ED 09/16/2020: Patient presents to the emergency room telling triage that he is weak, poor p.o. , nausea and vomiting with some concern of having biopsies on his legs yesterday, etc. He tells me specifically that he has thrown up blood several times since 10 AM and did have a little bit of vomiting before that. He is running out of his pain medicines and complains of the pain in his legs as very severe and this is his primary complaint at the time of my interview. No fevers chills or sweats. He also has been somewhat shaky. He was using hydrocodone which he gets from Dr. Mercedes and I believe another physician as well and he has been needing them about every 4-6 hours but his last was early this morning. 09/16/20 09/16/20 09/16/20 13:40 13:40 18:00 WBC 11.8 H Hgb 10.0 L Hct 30.2 L Plt Count 197 Eos % (Auto) 1.4 POC PT 34.4 H 16.2 H APTT 35.1 09/16/20 09/16/20 09/16/20 13:40 13:40 13:40 VBG Lactic Acid 1.5 Sodium 129 L Potassium 4.0 Chloride 86 L Carbon Dioxide 22 Anion Gap 21.0 H BUN 80 H Creatinine 13.4 H* GFR Calculation 3 Glucose 105 Calcium 7.6 L Total Bilirubin 0.3 AST 18 ALT 13 Alkaline Phosphatase 102 Troponin T 0.09 Total Protein 6.3 Albumin 2.9 L Globulin 3.4 Albumin/Globulin Ratio 0.9 L Lipase 22 Acetaminophen 12.3 Review of the PD and hospital records is consistent with inadequate dialysis (Increased SCr and BUN over his outpatient baseline) and uncontrolled secondary hyperparathyroidism (Phos elevated, Calcium depressed and PTH >900). Symptoms of hyperparathyroidism include abdominal pain and bone pain. However, CT abd in 2019 showed evidence for mesenteric vascular disease and pain could reflect mesenteric angina. As he is "allergic" to IV contrast, diagnosis and catheter related Tx would be near impossible. Best we focus on secondary hyperparathyroidism. O/N the HgB was stable and the states she never witnessed the vomiting of blood as he flushed down the sink or toilet. She cannot further define the pain except it is chronic in nature and xcurrently involves the legs. Says he legs look better after leg wrapping after the biopsy. Review of Systems All systems: reviewed and no additional remarkable complaints except as stated Review of systems: Both ED and attending ROS reviewed. 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) Secondary hyperparathyroidism of renal origin (Chronic) ESRD on peritoneal dialysis (Chronic) Cellulitis of left leg (Acute) Hematemesis with nausea (Acute) Elevated INR (Acute) Accidental acetaminophen overdose (Acute) Bilateral leg pain (Acute) Immunosuppressed status (Acute) MRSA (methicillin resistant staph aureus) culture positive (Acute) Bilateral leg cramps (Acute) Dialysis patient (Chronic) CHF (congestive heart failure) (Chronic) Heart transplant status (Chronic) 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 (Chronic) ESRD (end stage renal disease) on dialysis (Chronic) Medical History (Updated 09/17/20 @ 18:07 by Josue Luna MD) Dialysis patient (Chronic) Surgical History (Updated 09/17/20 @ 18:01 by Joseu Luna MD) History of heart transplant (Acute) 2006 History of open heart surgery (Acute) History of surgery (Acute) "tawanna in leg" History of surgery (Acute) HD cath placement PD cath placement History of surgery (Acute) 06/02/2019-removal of tunneled dialysis catheter History of surgery (Acute) 06/02/2019-removal of HD catheter left subclavian No pertinent past surgical history (Inactive) Family History Father Heart disease Mother Heart disease Hypertension Social History (Updated 06/21/19 @ 16:21 by Qian Turk MD) smoking status: Never smoker alcohol intake frequency: does not drink substance use type: does not use MEDS/ALLERGIES Home Medications and Allergies Home Medications Medication Instructions Recorded Confirmed Type amlodipine 5 mg PO BID 02/22/15 09/16/20 History prednisone 5 mg PO DAILY 03/30/15 09/16/20 History B complex-vitamin C-folic acid 0.8 1 tab PO QDAY #90 tab 06/14/19 09/16/20 Rx mg tablet gentamicin 0.1 % topical cream 1 applic TOPICAL DIRECTED #15 g 02/11/20 09/16/20 Rx ondansetron HCl [Zofran] 4 mg PO Q6H PRN #20 tab 03/29/20 09/16/20 Rx tacrolimus 1 mg PO Q12H 03/29/20 09/16/20 History calcium acetate 667 mg tablet 667 mg PO TID #270 tab 09/13/20 09/16/20 Rx azathioprine 50 mg PO QDAY 09/16/20 09/16/20 History cholecalciferol (vitamin D3) 25 mcg PO QDAY 09/16/20 09/16/20 History [Vitamin D3] cinacalcet 30 mg PO QDAY 09/16/20 09/16/20 History furosemide 40 mg PO QAM 09/16/20 09/16/20 History lansoprazole 40 mg PO QDAY 09/16/20 09/16/20 History metoprolol tartrate [Lopressor] 5 mg PO BID 09/16/20 09/16/20 History pantoprazole [Protonix] 40 mg PO PRN PRN 09/16/20 09/16/20 History potassium chloride 20 meq PO QDAY 09/16/20 09/16/20 History Allergies Allergy/AdvReac Type Severity Reaction Status Date / Time Banana [BANANA] Allergy Severe Swollen Verified 09/16/20 21:50 Tongue edgar flavor [EDGAR FLAVOR] Allergy Severe Throat Verified 09/16/20 21:50 Swells Iodinated Contrast Media Allergy Severe RT EYE Verified 09/16/20 21:50 CAME OUT OF SOCKET/SEVERE HEADACHE mycophenolate mofetil Allergy Severe ACUTE Verified 09/16/20 21:50 [From CELLCEPT] RENAL FAILURE atorvastatin AdvReac Intermediate Nausea Verified 09/16/20 21:50 Physical Examination Vital Signs Vital signs: Temp Pulse Resp BP Pulse Ox 37.1 C 99 H 18 136/82 91 09/17/20 12:00 09/17/20 12:00 09/17/20 12:00 09/17/20 12:00 09/17/20 12:00 General Appearance General appearance: chronically ill, fatigue and frail Exam Narrative: Sleeping and myoclonic jerking present EENT EENT: ATNC and PERRL Neck Neck: JVD (But collapse with inspiration) Respiratory Respiratory: no kyphosis and course breath sounds Cardiovascular Cardiology: mid-systolic murmur, no rub, no gallops, edema (1(+)), regular rhythm, normal S1 and normal S2 Gastrointestinal Gastrointestinal: normoactive bowel sounds, no tenderness and no guarding Integumentary Integumentary: warm and dry and hyperkeratosis Neurologic Neurologic: no focal deficit and CN 3-12 intact Musculoskeletal Musculoskeletal: deformities Psychiatric Psychiatric: mood/affect appropriate (cannot assess as sleeping) Results Lab Results Result Diagrams: 09/17/20 14:00 09/17/20 05:59 Lab results: Most recent lab results Calcium 8.2 mg/dL (8.6-10.4) L 09/17/20 05:59 Phosphorus 8.4 mg/dL (2.5-4.5) H* 09/17/20 05:59 Magnesium 2.0 mg/dL (1.6-2.5) 09/17/20 05:59 A/P Assessment and plan (1) ESRD on peritoneal dialysis: Status: Chronic Comment: ESRD since 2018 (2) Secondary hyperparathyroidism of renal origin: Status: Chronic Comment: Severe with last PTH > 900 Correct hyperphosphatemia Increase sensipar to qD dosing (3) Anemia in ESRD (end-stage renal disease): Status: Chronic (4) Myoclonus: Status: Chronic Comment: Appears worse when sleeping Underdialyzed (5) Heart transplant status: Assessment and plan: [facility] 2005 for ischemic cardiomyopathy Other vascular disease has progressed (see mesenteric Vasc finding on CT 2019) Status: Chronic Comment: Not on a statin (6) Prolonged pt (prothrombin time): Assessment and plan: Suspect lab error Recheck with mixing study Status: Acute Narrative A/P Narrative: 1. Increase dialysis deliver with increased volume and time on PD 2. Increase Phosphate binder to Ca Acetate 2001 mg TID with meals 3. Increase Sensipar to 30 mg po daily but will not do much good till PO4 lowered. 4. Arasnesp 100 ug SQ q week 5. Minimize lab work and resultant blood loss to lab 6. Retic count and Fe stores 7. PT and mix study 8. Echocardiogram Time Spent With Patient Time: Total time spent is greater than 50% in coordination of care (as documented) at patient's floor/unit and/or counseling patient: Total time spent with greater than 50% in coordination of care (as documented) at patient's floor/unit and/or counseling patient:: Greater than 35 minutes
[2020-09-17 14:54] LABS: Hematocrit 28.4 % (41.0-55.0); Hemoglobin 9.1 g/dL (13.5-16.5); Mean Cell Volume 89.9 fL (80.0-100.0); Mean Platelet Volume 9.3 fL (7.4-10.4); Platelet Count 182 K/mcL (140-440); RBC 3.16 M/mcL (4.50-5.90); Red Cell Distribution Width 14.3 % (11.5-14.5); WBC 13.9 K/mcL (4.5-11.0)
[2020-09-17 16:28] LABS: Band Neutrophils % 1 % (0-10); Eosinophils % (Manual) 1 % (0-7); Lymphocytes % 9 % (15-49); Monocytes % (Manual) 5 % (1-12); Myelocytes % 1 %; Platelet Estimate NORMAL (Normal); RBC Morphology NORMAL (Normal); Segmented Neutrophils % 83 % (38-78)
[2020-09-17] MEDS: PANTOPRAZOLE 40 MG VIAL IV SCH (17:28)
[2020-09-17] MEDS ORDERED: CALCIUM ACETATE 667 MG CAPSULE PO SCH (17:30)
--- NOTE | 2020-09-17 17:38 | Ultrasound Report ---
History: Claudication and skin ulcers in both legs Findings: Large amount of calcified plaque is present in the common femoral arteries bilaterally extending into the profunda and proximal superficial femoral arteries. Greater than 70% stenoses are present in the proximal superficial femoral arteries bilaterally. Distal to these stenoses the waveform patterns are monophasic. Proximal to the stenosis there are triphasic waveform patterns in the proximal mid common femoral arteries. There is also a moderate amount of plaque in the distal right superficial femoral artery, extending into the proximal popliteal, causing a 50-69% stenosis. There is no significant plaque in the left thigh. Three-vessel flow is seen in the right calf. In the left calf, only the posterior tibial artery is visualized. Patient was difficult to scan due to his inability to hold still, secondary to leg pain IMPRESSION: Hemodynamically significant stenoses in the proximal superficial femoral artery bilaterally Interpreted and Authenticated by: Nate Charlton 09/17/20
--- NOTE | 2020-09-17 17:52 | Internal Med Progress Note ---
SUBJECTIVE Subjective Patient information: Note initiated : 09/17/20 at 5:44 pm Service Date, if different from initiated Date: [] Patient: Jony Marie a 79 y/o M admitted on 09/16/20 for weakness. Chief Complaint: [] Interval history: Mr. 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 The patient also reported seeing blood in his vomitus. The patient primary concern is lower extremity pain which is most severe at the site of the nonhealing wound in high right calf. He has been taking oral oxycodone-acetaminophen for the pain. When I saw the patient he had recently received IV opioids and was trying to sleep. He also does not know his medications well and referred me to discuss them with his . I tried to call his a couple times on the night of admission but there was no answer. In the ED the patient had stable vitals, laboratory workup was remarkable for mi ld leukocytosis, slight downward trend of hemoglobin compared to prior labs, low sodium, elevated troponin (.11). EKG does not show any acute ischemic changes. Tylenol level is not elevated. The patient was admitted for intractable nausea and vomiting, pain management and workup in possible causes of these symptoms. 09/17 Nausea and vomiting improved however had some more hemoptysis this morning. Started protonix IV BID. Discontinued dilaudid IV prn, weaning oxycodone. Started trial of lyrica. Lower extremity arterial duplex for nonhealing wounds. Awaiting culture results, WBC slightly higher. Resumed home meds after confirming doses with the patient's . Constitutional Vitals: Vital Signs Temp Pulse Resp BP Pulse Ox 98.9 F 91 H 20 128/66 97 09/17/20 16:00 09/17/20 16:00 09/17/20 16:00 09/17/20 16:00 09/17/20 16:00 Period Temp Pulse Resp BP Sys/Fink Pulse Ox Last 24 Hr 97.7 F-98.9 F 78-99 13- 109-147/66-83 91-98 Intake and Output 09/17/20 09/17/20 09/17/20 05:59 13:59 21:59 Intake Total 550 240 Output Total 0 300 Balance 550 -60 Intake & Output: Intake & Output 09/17/20 09/17/20 09/17/20 05:59 13:59 21:59 Intake Total 550 240 Output Total 0 300 Balance 550 -60 Intake: IV 500 Sodium Chloride 0.9% 500 ml @ 500 Wide Open IV BOLUS ONE Rx#: [id number] Oral 50 240 Output: Void Amount 0 300 Other: Meal Breakfast Lunch Percent of Meal Consumed Refused 0% Urine Appearance Clear Urine Color Dark Yellow # Emeses 2 Head Head exam: Present atraumatic and normal inspection Eye Eye exam: Absent scleral icterus Neck Neck exam: Present full ROM; Absent tenderness Respiratory Respiratory exam: Absent accessory muscle use and respiratory distress Cardiovascular Cardiovascular exam: Present normal rate and rhythm GI/Abdominal GI/Abdominal exam: Present soft; Absent distended and tenderness Extremities Exam Extremities exam: Present tenderness; Absent full ROM and pedal edema Neurological Exam Neurological exam: Present alert and oriented X3 Psychiatric Psychiatric exam: Present normal affect and normal mood Additional findings Additional findings: multiple lesions on skin throughout body, nonhealing wound on left calf OBJ DATA Labs CBC & Chem 7: 09/17/20 14:00 09/17/20 05:59 Labs: Abnormal Lab Results 09/17/20 09/17/20 09/17/20 14:00 05:59 05:59 WBC 13.9 H RBC 3.16 L Hgb 9.1 L Hct 28.4 L POC Hct Seg Neutrophils % 83 H Lymphocytes % 9 L Absolute Neutrophils POC PT POC INR POC Sodium Sodium POC Chloride Chloride 88 L Carbon Dioxide 19 L Anion Gap 26.0 H POC BUN BUN 83 H Creatinine 11.6 H* POC Creatinine Glucose 147 H Calcium 8.2 L POC WB Ioniz Calcium Phosphorus 8.4 H* Lactate Dehydrogenase 234 H Troponin T 0.09 H* Albumin 3.0 L Albumin/Globulin Ratio 09/17/20 09/17/20 09/16/20 05:59 00:15 18:00 WBC 16.6 H RBC 3.66 L Hgb 10.4 L Hct 32.8 L POC Hct 29 L Seg Neutrophils % 86 H Lymphocytes % 5 L Absolute Neutrophils POC PT POC INR POC Sodium 128 L Sodium POC Chloride 89 L Chloride Carbon Dioxide Anion Gap POC BUN 94 H BUN Creatinine POC Creatinine 14.0 H* Glucose Calcium POC WB Ioniz Calcium 0.89 L Phosphorus Lactate Dehydrogenase Troponin T 0.09 H* Albumin Albumin/Globulin Ratio 09/16/20 09/16/20 09/16/20 18:00 16:10 13:40 WBC RBC Hgb Hct POC Hct 28 L Seg Neutrophils % Lymphocytes % Absolute Neutrophils POC PT 16.2 H 34.4 H POC INR 1.4 H 3.0 H POC Sodium 128 L Sodium POC Chloride 89 L Chloride Carbon Dioxide Anion Gap POC BUN 95 H BUN Creatinine POC Creatinine 13.9 H* Glucose Calcium POC WB Ioniz Calcium 0.88 L Phosphorus Lactate Dehydrogenase Troponin T Albumin Albumin/Globulin Ratio 09/16/20 09/16/20 09/16/20 13:40 13:40 13:40 WBC 11.8 H RBC 3.47 L Hgb 10.0 L Hct 30.2 L POC Hct Seg Neutrophils % Lymphocytes % Absolute Neutrophils 8.99 H POC PT POC INR POC Sodium Sodium 129 L POC Chloride Chloride 86 L Carbon Dioxide Anion Gap 21.0 H POC BUN BUN 80 H Creatinine 13.4 H* POC Creatinine Glucose Calcium 7.6 L POC WB Ioniz Calcium Phosphorus Lactate Dehydrogenase Troponin T 0.11 H* Albumin 2.9 L Albumin/Globulin Ratio 0.9 L Meds: Medications Acetaminophen (Tylenol) 650 mg PO Q6HP PRN; Protocol PRN Reason: Per Pain Protocol/Fever > 101 Calcium Acetate (Phoslo) 2,001 [facility]ID[facility] Cinacalcet (Sensipar) 30 mg PO QAMCC [facility] Last Admin: 09/17/20 08:00 Dose: 30 mg Documented by: Docusate Sodium (Colace) 100 mg PO BID [facility] Last Admin: 09/17/20 10:09 Dose: 100 mg Documented by: Gentamicin Sulfate (Gentamicin Crm 0.1%) 1 dose TOPICAL DAILYP PRN; Protocol PRN Reason: [employer] Losartan Potassium (Cozaar) 25 mg PO DAILY [facility] Ondansetron HCl (Zofran) 4 mg IV Q6HP PRN PRN Reason: Nausea And Vomiting Last Admin: 09/17/20 08:13 Dose: 4 mg Documented by: Oxycodone HCl (Roxicodone) 5 mg PO Q6HP PRN; Protocol PRN Reason: Per Pain Protocol Pantoprazole Sodium (Protonix) 40 mg IV BIDAC [facility] Last Admin: 09/17/20 17:28 Dose: 40 mg Documented by: Pravastatin Sodium (Pravachol) 10 mg PO HS [facility] Prednisone (Prednisone) 5 mg PO [facility] Last Admin: 09/17/20 13:18 Dose: 5 mg Documented by: Pregabalin (Lyrica) 50 mg PO DAILY [facility] Last Admin: 09/17/20 13:17 Dose: 50 mg Documented by: Prochlorperazine (Compazine) 5 mg IV Q4HP PRN PRN Reason: Nausea And Vomiting Last Admin: 09/17/20 13:31 Dose: 5 mg Documented by: Senna (Senokot) 2 tab PO HS [facility] Last Admin: 09/16/20 22:46 Dose: 2 tab Documented by: Sodium Chloride (Saline Flush) 10 ml IV Q8 [facility] Last Admin: 09/17/20 13:32 Dose: 10 ml Documented by: Tacrolimus (Tacrolimus) 2 mg PO HS [facility] Tacrolimus (Prograf) 1.5 mg PO DAILY [facility] Vitamin B Complex (Vitamin B Complex) 1 cap PO DAILY [facility] Vitamin D (Vitamin D3) 1,000 unit PO QDAY [facility] A/P Narrative A/P Narrative: ASSESSMENT: 79 year old male with a history of cardiac transplant (on tacrolimus and prednisone), ESRD on peritoneal dialysis, multiple skin cancers (likely related to immunosuppression), nonhealing lower extremity wounds of uncertain etiology s/p recent biopsy (pending pathology report), chronic lower extremity pain (on oral opioid) who presented to the ED for lower extremity pain and intractable nausea and vomiting. The cause of the patient's pain seems to be the lower extremity wounds, most severe in the right calf. The cause of the nausea and vomiting is uncertain- differential includes uremia vs opioid withdrawal vs occult infection vs silent ME (cardiac transplant), vs other? #Intractable nausea and vomiting-improved #Hematemesis #Acute on chronic anemia #Severe lower extremity pain #Nonhealing lower extremity wounds-recently biopsied #ESRD-on peritoneal dialysis #Hx of cardiac transplant-on tacrolimus and prednisone #Elevated troponin-down trending #Immunosuppression #Leukocytosis #Peripheral vascular disease-likely severe #Skin cancer PLAN -Antiemetics prn -Started protonix IV BID -Follow H/H and WBC -NPO at midnight. -follow blood and peritoneal cultures -Analgesics prn-wean as tolerated -Kel lower extremity arterial duplex -Wound cares -Peritoneal dialysis per nephrology -f/u pending tacrolimus level -home medications ordered-confirmed tacrolimus and prednisone doses -Full code Time Spent With Patient Time: Total time spent is greater than 50% in coordination of care (as document ed) at patient's floor/unit and/or counseling patient: 35 QUALITY VTE Deep Vein Thrombosis/Pulmonary Embolism Present on Admission: No
[2020-09-17] MEDS: CALCIUM ACETATE 667 MG CAPSULE PO SCH (17:57)
[2020-09-17] MEDS: ACETAMINOPHEN 325 MG TABLET PO PRN (18:52)
[2020-09-17] MEDS: TACROLIMUS 1 MG CAPSULE PO SCH (20:22)
[2020-09-17] MEDS: SENNOSIDES 1 TABLET PO SCH (20:22)
[2020-09-17] MEDS: PRAVASTATIN 20 MG TABLET PO SCH (20:23)
[2020-09-17] MEDS ORDERED: METOPROLOL TARTRATE 50 MG TABLET PO SCH (21:00)
[2020-09-18] MEDS: 0.9 % SODIUM CHLORIDE 10 ML SYRINGE IV SCH ×3 (04:08→20:31)
[2020-09-18 06:29] LABS: Hematocrit 25.8 % (41.0-55.0); Hemoglobin 8.3 g/dL (13.5-16.5); Mean Cell Volume 90.5 fL (80.0-100.0); Mean Corpuscular HGB Conc 32.2 g/dL (31.0-36.0); Mean Platelet Volume 9.5 fL (7.4-10.4); Platelet Count 169 K/mcL (140-440); RBC 2.85 M/mcL (4.50-5.90); Red Cell Distribution Width 14.6 % (11.5-14.5); Retic Absolute 0.04 M/mcL (0.03-0.11); WBC 11.7 K/mcL (4.5-11.0)
[2020-09-18 06:49] LABS: Iron 91 ug/dL (61-157); TIBC Calculation 110 ug/dl (228-428); Transferrin % Saturation 83 % (20-50)
[2020-09-18 07:15] LABS: ALT/SGPT 10 U/L (<40); AST/SGOT 17 U/L (<40); Albumin 2.5 gm/dL (3.2-5.2); Albumin/Globulin Ratio 0.9 (1.0-2.3); Alkaline Phosphatase 81 U/L (39-117); Bilirubin,Direct < 0.2 mg/dL (<0.3); Bilirubin,Total 0.2 mg/dL (0.1-1.0); Blood Urea Nitrogen 70 mg/dL (8-23); Calcium 8.3 mg/dL (8.6-10.4); Carbon Dioxide 21 mmol/L (22-30); Chloride 92 mmol/L (96-108); Globulin 2.9 gm/dL (2.2-3.7); Glomerular Filtration Rate 4; Glucose 108 mg/dL (70-105); Lactate Dehydrogenase 200 U/L (135-225); Phosphorous 6.6 mg/dL (2.5-4.5); Triglycerides 103 mg/dL (<150); Uric Acid 5.3 mg/dL (2.5-8.0)
[2020-09-18] MEDS: VITAMIN D3 1,000 UNIT TABLET PO SCH ×2 (07:32→10:50)
[2020-09-18] MEDS: CALCIUM ACETATE 667 MG CAPSULE PO SCH ×3 (07:32→17:04)
[2020-09-18] MEDS: CINACALCET 30 MG TABLET PO SCH ×3 (07:32→10:51)
[2020-09-18] MEDS: PANTOPRAZOLE 40 MG VIAL IV SCH ×3 (07:32→16:57)
[2020-09-18] MEDS: predniSONE 5 MG TABLET PO SCH ×2 (07:49→10:51)
[2020-09-18 07:50] LABS: Prothrombin Time 13.1 sec (11.9-14.5)
[2020-09-18] MEDS ORDERED: predniSONE 5 MG TABLET PO SCH (08:00)
[2020-09-18 08:39] LABS: Eosinophils % (Manual) 1 % (0-7); Lymphocytes % 11 % (15-49); Monocytes % (Manual) 4 % (1-12); Platelet Estimate NORMAL (Normal); RBC Morphology NORMAL (Normal); Segmented Neutrophils % 84 % (38-78)
[2020-09-18] MEDS ORDERED: FUROSEMIDE 40 MG TABLET PO SCH (09:00)
[2020-09-18] MEDS ORDERED: DARBEPOETIN ALFA 100 MCG/ML VIAL SQ ONE (09:00)
--- NOTE | 2020-09-18 09:15 | Nephrology Progress Note ---
SUBJECTIVE Subjective Patient information: Note initiated : 09/18/20 at 9:12 am Service Date, if different from initiated Date: [] Patient: Jony Marie 79 y/o M admitted on 09/16/20 for weakness. Chief Complaint: [Chronic pain, hematemesis] Ran his entire peritoneal dialysis treatment last evening for a total of 18 L and total UF of 1377 cc. This morning he is n.p.o. but its not clear if he is going to have EGD colonoscopy or both He is lying flat, no shortness of breath His myoclonus has improved or its nocturnal myoclonus as he is not sleeping. I suspect it was related to under dialysis and uremia Hemoglobin has declined further today He will get 100 mcg of Aranesp Iron stores are normal/adequate Constitutional Vitals: Vital Signs Temp Pulse Resp BP Pulse Ox 37.1 C 93 H 13 135/83 95 09/18/20 04:07 09/18/20 04:07 09/18/20 04:07 09/18/20 04:07 09/18/20 04:07 Period Temp Pulse Resp BP Sys/Fink Pulse Ox Last 24 Hr 37.1 C-37.2 C 91-103 13-24 124-171/66-83 91-97 Intake and Output 09/17/20 09/18/20 09/18/20 21:59 05:59 13:59 Intake Total 240 300 Output Total 300 0 Balance -60 300 Weight 69.763 kg Intake & Output: Intake & Output 09/17/20 09/18/20 09/18/20 21:59 05:59 13:59 Intake Total 240 300 Output Total 300 0 Balance -60 300 Weight 69.763 kg Intake: Oral 240 300 Output: Void Amount 300 0 Other: Meal Lunch Percent of Meal Consumed 0% Stool Size Large Stool Color Brown Stool Consistency Formed 09/18/20 09/18/20 09/18/20 05:20 05:20 05:20 WBC 11.7 H Hgb 8.3 L Hct 25.8 L Plt Count 169 Eosinophils % (Manual) 1 Percent Retic 1.42 PT 13.1 INR 1.0 09/18/20 09/18/20 09/18/20 05:20 05:20 05:20 Sodium 134 Potassium 3.7 Chloride 92 L Carbon Dioxide 21 L Anion Gap 21.0 H BUN 70 H Creatinine 10.5 H* GFR Calculation 4 Glucose 108 H Uric Acid 5.3 Calcium 8.3 L Phosphorus 6.6 H* Magnesium 2.0 Iron 91 TIBC 110 L Transferrin % Sat 83 H GGT 14 AST 17 ALT 10 Alkaline Phosphatase 81 Lactate Dehydrogenase 200 Albumin 2.5 L Globulin 2.9 Albumin/Globulin Ratio 0.9 L PTH Intact 313.6 H Exam: Chronically ill-appearing but nontoxic Head Head exam: Present normocephalic Eye Eye exam: Present EOMI and PERRL; Absent nystagmus Pupils: Present PERRL ENT ENT exam: Present mucous membranes moist Neck Neck exam: Present full ROM and normal inspection; Absent meningismus Respiratory Respiratory exam: Present CTAB; Absent accessory muscle use, rales, respiratory distress and wheezes Cardiovascular Cardiovascular exam: Present normal rate and rhythm, +S1, +S2 and systolic murmur; Absent gallop and rubs GI/Abdominal GI/Abdominal exam: Present normal bowel sounds; Absent guarding Neurological Exam Neurological exam: Present alert, CN II-XII intact and oriented X3 Psychiatric Psychiatric exam: Present flat affect Skin Skin exam: Present dry; Absent petechiae and rash Additional comments: Diffuse hyperkeratotic lesions A/P Assessment and plan (1) ESRD on peritoneal dialysis: Status: Chronic Comment: ESRD since 2018 (2) 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 Ears better dialyzed... Continue current dialysis orders 2. Diagnostic procedures for GI blood loss 3. Repeat PT/INR were normal... Suspect some sort of lab error with the [id number] testing in the emergency room 4. Hyperparathyroidism has improved, continue phosphate binders and Sensipar 5. Myoclonus seems improved... I suspect due to uremia 6. Acute GI blood loss... Work-up per hospital team Time Spent With Patient Time: Total time spent is greater than 50% in coordination of care (as documented) at patient's floor/unit and/or counseling patient: Total time spent with greater than 50% in coordination of care (as documented) at patient's floor/unit and/or counseling patient:: Greater than 35 minutes
[2020-09-18] MEDS: TACROLIMUS 0.5 MG CAPSULE PO SCH (10:42)
[2020-09-18] MEDS: LOSARTAN 25 MG TABLET PO SCH (10:50)
[2020-09-18] MEDS: PREGABALIN 25 MG CAPSULE PO SCH (10:50)
[2020-09-18] MEDS: VITAMIN B COMPLEX 1 CAPSULE PO SCH (10:50)
[2020-09-18] MEDS: DOCUSATE SODIUM 100 MG CAPSULE PO SCH ×2 (10:53→20:30)
[2020-09-18] MEDS: ACETAMINOPHEN 325 MG TABLET PO PRN (15:10)
--- NOTE | 2020-09-18 17:24 | Internal Med Progress Note ---
SUBJECTIVE Subjective Patient information: Note initiated : 09/18/20 at 5:17 pm Service Date, if different from initiated Date: [] Patient: Jony Marie a 79 y/o M admitted on 09/16/20 for weakness. Chief Complaint: [] Interval history: Mr. 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 The patient also reported seeing blood in his vomitus. The patient primary concern is lower extremity pain which is most severe at the site of the nonhealing wound in high right calf. He has been taking oral oxycodone-acetaminophen for the pain. When I saw the patient he had recently received IV opioids and was trying to sleep. He also does not know his medications well and referred me to discuss them with his . I tried to call his a couple times on the night of admission but there was no answer. In the ED the patient had stable vitals, laboratory workup was remarkable for mi ld leukocytosis, slight downward trend of hemoglobin compared to prior labs, low sodium, elevated troponin (.11). EKG does not show any acute ischemic changes. Tylenol level is not elevated. The patient was admitted for intractable nausea and vomiting, pain management and workup in possible causes of these symptoms. 09/17 Nausea and vomiting improved however had some more hemoptysis this morning. Started protonix IV BID. Discontinued dilaudid IV prn, weaning oxycodone. Started trial of lyrica. Lower extremity arterial duplex for nonhealing wounds showed severe arterial stenosis bilaterally. Awaiting culture results, WBC slightly higher. Resumed home meds after confirming doses with the patient's . 09/18 Much improved nausea today, weaned off opioids but not sure if pain will be adequately controlled with oral tylenol. Hemoglobin downward trend appears to have plateaued. Infectious workup-NGTD, WBC down trending. Constitutional Vitals: Vital Signs Temp Pulse Resp BP Pulse Ox 98.1 F 94 H 20 115/77 95 09/18/20 08:00 09/18/20 08:00 09/18/20 08:00 09/18/20 08:00 09/18/20 08:00 Period Temp Pulse Resp BP Sys/Fink Pulse Ox Last 24 Hr 98.1 F-98.8 F 93-103 13-24 115-171/66-83 95-97 Intake and Output 09/18/20 09/18/20 09/18/20 05:59 13:59 21:59 Intake Total 300 250 Output Total 0 Balance 300 250 Weight 69.763 kg Patient Weight 09/19/20 05:59 Weight 69.763 kg Intake & Output: Intake & Output 09/18/20 09/18/20 09/18/20 05:59 13:59 21:59 Intake Total 300 250 Output Total 0 Balance 300 250 Weight 69.763 kg Intake: Oral 300 250 Output: Void Amount 0 Other: Meal Lunch Percent of Meal Consumed 100% Stool Size Large Large Stool Color Brown Brown Stool Consistency Formed Formed Exam: Chronically ill-appearing but nontoxic Head Head exam: Present atraumatic and normal inspection Eye Eye exam: Present normal appearance ENT ENT exam: Present mucous membranes moist, normal exam and normal external ear exam Neck Neck exam: Present normal inspection Respiratory Respiratory exam: Present normal respiratory exam Cardiovascular Cardiovascular exam: Present normal rate and rhythm GI/Abdominal GI/Abdominal exam: Present soft; Absent distended and tenderness Additional comments: Peritoneal dialysis catheter present. Back Exam Back exam: Present normal inspection Neurological Exam Neurological exam: Present alert and oriented X3 Skin Additional comments: Lower extremity wounds and skin lesions throughout body. OBJ DATA Labs CBC & Chem 7: 09/18/20 14:26 09/18/20 05:20 Labs: Abnormal Lab Results 09/18/20 09/18/20 09/18/20 14:26 05:20 05:20 WBC RBC Hgb 8.5 L Hct POC Hct RDW Seg Neutrophils % Lymphocytes % Absolute Neutrophils POC PT POC INR POC Sodium Sodium POC Chloride Chloride Carbon Dioxide Anion Gap POC BUN BUN Creatinine POC Creatinine Glucose Calcium POC WB Ioniz Calcium Phosphorus TIBC 110 L Unsat Iron Binding 19 L Transferrin % Sat 83 H Lactate Dehydrogenase Troponin T Total Protein Albumin Albumin/Globulin Ratio PTH Intact 313.6 H 09/18/20 09/18/20 09/17/20 05:20 05:20 18:40 WBC 11.7 H RBC 2.85 L Hgb 8.3 L 9.0 L Hct 25.8 L POC Hct RDW 14.6 H Seg Neutrophils % 84 H Lymphocytes % 11 L Absolute Neutrophils POC PT POC INR POC Sodium Sodium POC Chloride Chloride 92 L Carbon Dioxide 21 L Anion Gap 21.0 H POC BUN BUN 70 H Creatinine 10.5 H* POC Creatinine Glucose 108 H Calcium 8.3 L POC WB Ioniz Calcium Phosphorus 6.6 H* TIBC Unsat Iron Binding Transferrin % Sat Lactate Dehydrogenase Troponin T Total Protein 5.4 L Albumin 2.5 L Albumin/Globulin Ratio 0.9 L PTH Intact 09/17/20 09/17/20 09/17/20 14:00 05:59 05:59 WBC 13.9 H RBC 3.16 L Hgb 9.1 L Hct 28.4 L POC Hct RDW Seg Neutrophils % 83 H Lymphocytes % 9 L Absolute Neutrophils POC PT POC INR POC Sodium Sodium POC Chloride Chloride 88 L Carbon Dioxide 19 L Anion Gap 26.0 H POC BUN BUN 83 H Creatinine 11.6 H* POC Creatinine Glucose 147 H Calcium 8.2 L POC WB Ioniz Calcium Phosphorus 8.4 H* TIBC Unsat Iron Binding Transferrin % Sat Lactate Dehydrogenase 234 H Troponin T 0.09 H* Total Protein Albumin 3.0 L Albumin/Globulin Ratio PTH Intact 09/17/20 09/17/20 09/16/20 05:59 00:15 18:00 WBC 16.6 H RBC 3.66 L Hgb 10.4 L Hct 32.8 L POC Hct 29 L RDW Seg Neutrophils % 86 H Lymphocytes % 5 L Absolute Neutrophils POC PT POC INR POC Sodium 128 L Sodium POC Chloride 89 L Chloride Carbon Dioxide Anion Gap POC BUN 94 H BUN Creatinine POC Creatinine 14.0 H* Glucose Calcium POC WB Ioniz Calcium 0.89 L Phosphorus TIBC Unsat Iron Binding Transferrin % Sat Lactate Dehydrogenase Troponin T 0.09 H* Total Protein Albumin Albumin/Globulin Ratio PTH Intact 09/16/20 09/16/20 09/16/20 18:00 16:10 13:40 WBC RBC Hgb Hct POC Hct 28 L RDW Seg Neutrophils % Lymphocytes % Absolute Neutrophils POC PT 16.2 H 34.4 H POC INR 1.4 H 3.0 H POC Sodium 128 L Sodium POC Chloride 89 L Chloride Carbon Dioxide Anion Gap POC BUN 95 H BUN Creatinine POC Creatinine 13.9 H* Glucose Calcium POC WB Ioniz Calcium 0.88 L Phosphorus TIBC Unsat Iron Binding Transferrin % Sat Lactate Dehydrogenase Troponin T Total Protein Albumin Albumin/Globulin Ratio PTH Intact 09/16/20 09/16/20 09/16/20 13:40 13:40 13:40 WBC 11.8 H RBC 3.47 L Hgb 10.0 L Hct 30.2 L POC Hct RDW Seg Neutrophils % Lymphocytes % Absolute Neutrophils 8.99 H POC PT POC INR POC Sodium Sodium 129 L POC Chloride Chloride 86 L Carbon Dioxide Anion Gap 21.0 H POC BUN BUN 80 H Creatinine 13.4 H* POC Creatinine Glucose Calcium 7.6 L POC WB Ioniz Calcium Phosphorus TIBC Unsat Iron Binding Transferrin % Sat Lactate Dehydrogenase Troponin T 0.11 H* Total Protein Albumin 2.9 L Albumin/Globulin Ratio 0.9 L PTH Intact Meds: Medications Acetaminophen (Tylenol) 1,000 mg PO Q8HP [facility]; Protocol [facility] Last Admin: 09/18/20 17:04 Dose: 2,001 mg Documented by: Cinacalcet (Sensipar) 30 mg PO [facility] Last Admin: 09/18/20 10:51 Dose: 30 mg Documented by: Docusate Sodium (Colace) 100 mg PO BID [facility] Last Admin: 09/18/20 10:53 Dose: Not Given Documented by: Gentamicin Sulfate (Gentamicin Crm 0.1%) 1 dose TOPICAL DAILYP PRN; Protocol PRN Reason: [employer] Losartan Potassium (Cozaar) 25 mg PO DAILY [facility] Last Admin: 09/18/20 10:50 Dose: 25 mg Documented by: Ondansetron HCl (Zofran) 4 mg IV Q6HP PRN PRN Reason: Nausea And Vomiting Last Admin: 09/17/20 08:13 Dose: 4 mg Documented by: Pantoprazole Sodium (Protonix) 40 mg IV BIDAC [facility] Last Admin: 09/18/20 16:57 Dose: Not Given Documented by: Pravastatin Sodium (Pravachol) 10 mg PO [facility] Last Admin: 09/17/20 20:23 Dose: Not Given Documented by: Prednisone (Prednisone) 5 mg PO [facility] Last Admin: 09/18/20 10:51 Dose: 5 mg Documented by: Pregabalin (Lyrica) 50 mg PO DAILY [facility] Last Admin: 09/18/20 10:50 Dose: 50 mg Documented by: Prochlorperazine (Compazine) 5 mg IV Q4HP PRN PRN Reason: Nausea And Vomiting Last Admin: 09/17/20 23:30 Dose: 5 mg Documented by: Senna (Senokot) 2 tab PO HS [facility] Last Admin: 09/17/20 20:22 Dose: 2 tab Documented by: Sodium Chloride (Saline Flush) 10 ml IV Q8 [facility] Last Admin: 09/18/20 15:10 Dose: 10 ml Documented by: Tacrolimus (Tacrolimus) 2 mg PO HS [facility] Last Admin: 09/17/20 20:22 Dose: 2 mg Documented by: Tacrolimus (Prograf) 1.5 mg PO DAILY [facility] Last Admin: 09/18/20 10:42 Dose: 1.5 mg Documented by: Vitamin B Complex (Vitamin B Complex) 1 cap PO DAILY [facility] Last Admin: 09/18/20 10:50 Dose: 1 cap Documented by: Vitamin D (Vitamin D3) 1,000 unit PO QDAY [facility] Last Admin: 09/18/20 10:50 Dose: 1,000 unit Documented by: A/P Assessment and plan (1) ESRD on peritoneal dialysis: Status: Chronic Comment: ESRD since 2018 (2) Anemia in ESRD (end-stage renal disease): Status: Chronic (3) Prolonged pt (prothrombin time): Assessment and plan: Suspect lab error Recheck with mixing study Status: Acute (4) Secondary hyperparathyroidism of renal origin: Status: Chronic (5) Myoclonus: Status: Chronic Narrative A/P Narrative: ASSESSMENT: 79 year old male with a history of cardiac transplant (on tacrolimus and prednisone), ESRD on peritoneal dialysis, multiple skin cancers (likely related to immunosuppression), nonhealing lower extremity wounds of uncertain etiology s/p recent biopsy (pending pathology report), chronic lower extremity pain (on oral opioid) who presented to the ED for lower extremity pain and intractable nausea and vomiting. The cause of the patient's pain is secondary to lower extremity wounds, most severe in the right calf. He does have peripheral artery disease that may be playing a role in nonhealing wounds. The patient's nausea and vomiting improve with weaning off opioids and peritoneal dialysis with staff support. The cause of the nausea and vomiting was likely related to a combination of opioids and under dialysis at home. The patient had an acute drop in hemoglobin that appear to have stabilized. #Intractable nausea and vomiting-resolved #Hematemesis-resolved #Acute on chronic anemia #Lower extremity pain-improved #Nonhealing lower extremity wounds-recently biopsied #Peripheral artery disease #ESRD-on peritoneal dialysis #Hx of cardiac transplant-on tacrolimus and prednisone #Elevated troponin-stable (not ACS) #Immunosuppression #Leukocytosis-improving #Skin cancer PLAN -Antiemetics prn -Protonix IV BID, likely transition to oral PPI BID for 8 weeks if hemoglobin remains stable -Follow H/H and WBC -renal diet -follow blood and peritoneal cultures-NGTD -scheduled Tylenol -on lyrica -Wound cares -Peritoneal dialysis per nephrology, received aranesp -Dispo:possible discharge to home tomorrow if hemoglobin improves, otherwise consult surgery/GI for EGD. -Full code Time Spent With Patient Time: Total time spent is greater than 50% in coordination of care (as documented) at patient's floor/unit and/or counseling patient: QUALITY VTE Deep Vein Thrombosis/Pulmonary Embolism Present on Admission: No
[2020-09-18] MEDS: ACETAMINOPHEN 500 MG TABLET PO SCH (20:30)
[2020-09-18] MEDS: SENNOSIDES 1 TABLET PO SCH (20:30)
[2020-09-18] MEDS: TACROLIMUS 1 MG CAPSULE PO SCH (20:31)
[2020-09-18] MEDS: PRAVASTATIN 20 MG TABLET PO SCH (20:31)
[2020-09-18] MEDS ORDERED: ACETAMINOPHEN 325 MG TABLET PO SCH (21:00)
[2020-09-19] MEDS: ACETAMINOPHEN 500 MG TABLET PO SCH (05:32)
[2020-09-19] MEDS: 0.9 % SODIUM CHLORIDE 10 ML SYRINGE IV SCH (05:33)
[2020-09-19] MEDS: PANTOPRAZOLE 40 MG VIAL IV SCH (06:44)
[2020-09-19 06:59] LABS: Hematocrit 28.3 % (41.0-55.0); Hemoglobin 8.8 g/dL (13.5-16.5); Mean Cell Volume 89.8 fL (80.0-100.0); Mean Corpuscular HGB Conc 31.1 g/dL (31.0-36.0); Mean Platelet Volume 9.5 fL (7.4-10.4); Platelet Count 198 K/mcL (140-440); RBC 3.15 M/mcL (4.50-5.90); Red Cell Distribution Width 14.6 % (11.5-14.5); WBC 12.4 K/mcL (4.5-11.0)
[2020-09-19] MEDS: CALCIUM ACETATE 667 MG CAPSULE PO SCH ×2 (07:02→12:09)
[2020-09-19] MEDS: CINACALCET 30 MG TABLET PO SCH (07:03)
[2020-09-19] MEDS: predniSONE 5 MG TABLET PO SCH (07:03)
[2020-09-19 08:04] LABS: Eosinophils % (Manual) 2 % (0-7); Lymphocytes % 18 % (15-49); Monocytes % (Manual) 8 % (1-12); Platelet Estimate NORMAL (Normal); RBC Morphology NORMAL (Normal); Segmented Neutrophils % 72 % (38-78)
[2020-09-19] MEDS: PREGABALIN 25 MG CAPSULE PO SCH (08:13)
[2020-09-19] MEDS: DOCUSATE SODIUM 100 MG CAPSULE PO SCH (08:13)
[2020-09-19] MEDS: VITAMIN B COMPLEX 1 CAPSULE PO SCH (08:13)
[2020-09-19] MEDS: LOSARTAN 25 MG TABLET PO SCH (08:13)
[2020-09-19] MEDS: VITAMIN D3 1,000 UNIT TABLET PO SCH (08:14)
[2020-09-19] MEDS: TACROLIMUS 0.5 MG CAPSULE PO SCH (08:22)
[2020-09-19 08:32] LABS: ALT/SGPT 12 U/L (<40); AST/SGOT 34 U/L (<40); Albumin 2.4 gm/dL (3.2-5.2); Albumin/Globulin Ratio 0.7 (1.0-2.3); Alkaline Phosphatase 92 U/L (39-117); Bilirubin,Direct < 0.2 mg/dL (<0.3); Bilirubin,Total 0.2 mg/dL (0.1-1.0); Blood Urea Nitrogen 57 mg/dL (8-23); Calcium 8.7 mg/dL (8.6-10.4); Carbon Dioxide 23 mmol/L (22-30); Chloride 93 mmol/L (96-108); Globulin 3.5 gm/dL (2.2-3.7); Glomerular Filtration Rate 5; Glucose 101 mg/dL (70-105); Lactate Dehydrogenase 260 U/L (135-225); Phosphorous 5.9 mg/dL (2.5-4.5); Triglycerides 97 mg/dL (<150)
--- NOTE | 2020-09-19 09:29 | Nephrology Progress Note ---
SUBJECTIVE Subjective Patient information: Note initiated : 09/19/20 at 9:29 am Service Date, if different from initiated Date: [] Patient: Jony Marie 79 y/o M admitted on 09/16/20 for weakness. Chief Complaint: [Weakness and vomiting blood] After an initial decrease in his hemoglobin, demonstration that the elevated PTT/INR was a lab error, and intensifying his dialysis prescription is metabolic parameters have improved and is blood count is now stable between 8.5 and 9 g/dL hemoglobin. I do not see any evidence of active vomiting. I would suggest an outpatient GI evaluation and the patient could probably be discharged at the discretion of the hospitalist team. Constitutional Vitals: Vital Signs Temp Pulse Resp BP Pulse Ox 36.8 C 91 H 20 119/77 93 09/19/20 07:49 09/19/20 07:49 09/19/20 07:49 09/19/20 07:49 09/19/20 07:49 Period Temp Pulse Resp BP Sys/Fink Pulse Ox Last 24 Hr 36.7 C-36.9 C 87-94 14-20 98-144/65-83 93-96 Intake and Output 09/18/20 09/19/20 09/19/20 21:59 05:59 13:59 Intake Total 250 150 Balance 250 150 Weight 66.587 kg Intake & Output: Intake & Output 09/18/20 09/19/20 09/19/20 21:59 05:59 13:59 Intake Total 250 150 Balance 250 150 Weight 66.587 kg Intake: Oral 250 150 Other: Meal Lunch Percent of Meal Consumed 100% Stool Size Small Stool Consistency Loose # Voids 1 # Bowel Movements 1 Laboratory Tests 09/19/20 06:05 WBC 12.4 H Hgb 8.8 L Hct 28.3 L Plt Count 198 09/19/20 06:05 Sodium 133 Potassium 3.5 Chloride 93 L Carbon Dioxide 23 Anion Gap 17.0 H BUN 57 H Creatinine 9.7 H* GFR Calculation 5 Glucose 101 Calcium 8.7 Phosphorus 5.9 H* Magnesium 1.9 Lactate Dehydrogenase 260 H Albumin 2.4 L General appearance: average body habitus and cooperative Exam: Nontoxic Head Head exam: Present atraumatic and normal inspection Eye Eye exam: Present EOMI and PERRL; Absent nystagmus and periorbital swelling ENT ENT exam: Present mucous membranes dry Neck Neck exam: Present full ROM; Absent meningismus and tenderness Respiratory Respiratory exam: Present normal respiratory exam and CTAB; Absent accessory muscle use Cardiovascular Cardiovascular exam: Present normal rate and rhythm, +S1 and +S2; Absent JVD and rubs GI/Abdominal GI/Abdominal exam: Present normal bowel sounds, soft and hypoactive bowel sounds; Absent bruit and tenderness Neurological Exam Neurological exam: Present alert, CN II-XII intact and oriented X3 Skin Skin exam: Present normal color; Absent pallor and petechiae Additional comments: Seborrheic keratosis Expanded Skin Exam Description of rash: Present crusting Additional findings Additional findings: Diffuse seborrheic keratosis A/P Assessment and plan (1) ESRD on peritoneal dialysis: Status: Chronic Comment: ESRD since 2017 (2) Secondary hyperparathyroidism of renal origin: Status: Chronic (3) Anemia in ESRD (end-stage renal disease): Status: Chronic (4) Myoclonus: Status: Chronic (5) Heart transplant status: Assessment and plan: Maritza 2005 for ischemic cardiomyopathy 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 He is improved with intensification of his dialysis regiment (18 L/day with 9 exchanges) and he will need increased Aranesp 100 mcg subcu every Friday until hemoglobin improves. Follow-up in 1 week with the dialysis nurse [facility] Time Spent With Patient Time: Total time spent is greater than 50% in coordination of care (as documented) at patient's floor/unit and/or counseling patient:
--- NOTE | 2020-09-19 11:45 | Discharge Summary ---
Discharge Provider Provider Patient information: Note initiated : 09/19/20 at 11:39 am Service Date, if different from initiated Date: [] Patient: Jony Marie 79 y/o M admitted on 09/16/20 for weakness. Chief Complaint: [nausea and vomiting ] Date of admission: 09/16/20 20:57 Discharge date: 09/19/20 Primary care physician: Mainor Mercedes Consults: 09/16/20 Consult to Physician [CONS] Stat Comment: Consulting Provider: Nick Tena Reason For Exam: Physician to Consult Consult to Physician [CONS] Stat Comment: Consulting Provider: Josue Luna Reason For Exam: Physician to Consult Discharge Meds Discharge Medications Home Medications amlodipine 5 mg PO BID 02/22/15 [History Confirmed 09/16/20 Last Taken 09/16/20] prednisone 5 mg PO DAILY 03/30/15 [History Confirmed 09/16/20 Last Taken ] B complex-vitamin C-folic acid 0.8 mg tablet 1 tab PO QDAY #90 tab 06/14/19 [Rx Confirmed 09/16/20 Last Taken 10/19/19] gentamicin 0.1 % topical cream 1 applic TOPICAL DIRECTED #15 g 02/11/20 [Rx Confirmed 09/16/20 Last Taken Unknown] ondansetron HCl [Zofran] 4 mg PO Q6H PRN #20 tab 03/29/20 [Rx Confirmed 09/16/20 Last Taken Unknown] tacrolimus 1.5 mg PO QAM 03/29/20 [History Confirmed 09/19/20 Last Taken 09/16/20] calcium acetate 667 mg tablet 667 mg PO TID #270 tab 09/13/20 [Rx Confirmed 09/16/20 Last Taken Unknown] cinacalcet 30 mg PO QDAY 09/16/20 [History Confirmed 09/16/20 Last Taken Unknown] furosemide 40 mg PO QAM 09/16/20 [History Confirmed 09/16/20 Last Taken Unknown] potassium chloride 10 meq PO QDAY 09/16/20 [History Confirmed 09/19/20 Last Taken Unknown] acetaminophen [Tylenol Extra Strength] 1,000 mg PO Q8 #90 tab NS 09/19/20 [Rx Last Taken Unknown] calcium acetate(phosphat bind) 2,001 mg PO TIDCC #30 cap 09/19/20 [Rx Last Taken Unknown] cholecalciferol (vitamin D3) 1,000 unit PO QDAY #30 tab 09/19/20 [Rx Last Taken Unknown] losartan 25 mg PO BID 09/19/20 [History Confirmed 09/19/20 Last Taken Unknown] pantoprazole [Protonix] 40 mg PO BID 60 Days #120 tab 09/19/20 [Rx Last Taken Unknown] pregabalin 50 mg PO DAILY #60 cap 09/19/20 [Rx Last Taken Unknown] tacrolimus 2 mg PO QPM 09/19/20 [History Confirmed 09/19/20 Last Taken Unknown] COURSE Hospital Course Hospital course: 79 year old male with a history of cardiac transplant (on tacrolimus and prednisone), ESRD on peritoneal dialysis, multiple skin cancers (likely related to immunosuppression), nonhealing lower extremity wounds of uncertain etiology s/p recent biopsy (pending pathology report), chronic lower extremity pain (on oral opioid) who presented to the ED for lower extremity pain and intractable nausea and vomiting. The cause of the patient's pain is secondary to lower extremity wounds, most severe in the right calf. He does have peripheral artery disease that may be playing a role in nonhealing wounds. The patient's nausea and vomiting improve with weaning off opioids and peritoneal dialysis with staff support. The cause of the nausea and vomiting was likely related to a combination of opioids and under dialysis at home. The patient had an acute drop in hemoglobin that stabilized. The patient was started on Protonix IV BID while monitoring hemoglobin then discharged on Protonix PO BID for 8 weeks and GI referral. An arterial duplex of the lower extremities was down and showed significant stenosis of multiple vessels. The patient does have nonhealing wounds in the lower extremity but no evident of limb threatening ischemia. The patient should follow up with vascular surgery at [place] for peripheral arterial disease. Discharge diagnosis: nausea and vomiting Time Spent with Patient Time attestation: Total time spent providing and/or coordinating discharge services: EXAM Constitutional Vitals: Temp Pulse Resp BP Pulse Ox 98.3 F 91 H 20 119/77 93 09/19/20 09:00 09/19/20 07:49 09/19/20 07:49 09/19/20 09:00 09/19/20 07:49 Head Head exam: Present atraumatic and normal inspection Eye Eye exam: Present normal appearance; Absent scleral icterus Neck Neck exam: Present full ROM Cardiovascular Cardiovascular exam: Present normal rate and rhythm GI/Abdominal GI/Abdominal exam: Present soft; Absent distended Extremities Exam Extremities exam: Present normal inspection and tenderness Neurological Exam Neurological exam: Present alert and CN II-XII intact Skin Additional comments: nonhealing wounds Discharge Data Data Completed and Pending Labs on day of discharge: Labs from last 24 hours 09/19/20 09/19/20 09/18/20 06:05 06:05 14:26 WBC 12.4 H RBC 3.15 L Hgb 8.8 L 8.5 L Hct 28.3 L MCV 89.8 MCH 27.9 MCHC 31.1 RDW 14.6 H Plt Count 198 MPV 9.5 Seg Neutrophils % 72 Lymphocytes % 18 Monocytes % (Manual) 8 Eosinophils % (Manual) 2 Platelet Estimate Normal RBC Morphology Normal Sodium 133 Potassium 3.5 Chloride 93 L Carbon Dioxide 23 Anion Gap 17.0 H BUN 57 H Creatinine 9.7 H* GFR Calculation 5 Glucose 101 Uric Acid 5.0 Calcium 8.7 Phosphorus 5.9 H* Magnesium 1.9 Total Bilirubin 0.2 Direct Bilirubin < 0.2 GGT 15 AST 34 ALT 12 Alkaline Phosphatase 92 Lactate Dehydrogenase 260 H Total Protein 5.9 Albumin 2.4 L Globulin 3.5 Albumin/Globulin Ratio 0.7 L Triglycerides 97 Preliminary micro results at discharge 09/16/20 20:53 Blood Culture - Preliminary Blood 09/16/20 20:40 Blood Culture - Preliminary Blood 09/17/20 09:23 Gram Stain - Preliminary Peritoneal Dialysis Fluid Body Fluid Culture - Preliminary Discharge Plan Patient/Caregiver Discharge Instructions Activity: increase activity as tolerated Diet: Renal Instructions: Calcium Acetate (By mouth), Pantoprazole (By mouth), Pregabalin (By mouth), Cholecalciferol (By mouth), Acute Nausea and Vomiting (DC) Activity Restrictions/Additional Instructions: r Prescriptions: New cholecalciferol (vitamin D3) 25 mcg (1,000 unit) Tablet 1,000 unit PO QDAY Qty: 30 RF: 3 acetaminophen [Tylenol Extra Strength] 500 mg Tablet 1,000 mg PO Q8 Qty: 90 RF: 0 calcium acetate(phosphat bind) 667 mg Capsule 2,001 mg PO TIDCC Qty: 30 RF: 3 pregabalin 25 mg Capsule 50 mg PO DAILY Qty: 60 RF: 3 pantoprazole [Protonix] 40 mg tablet,delayed release (DR/EC) 40 mg PO BID 60 Days Qty: 120 RF: 0 Continued Dialyvite 800 0.8 mg tablet 1 tab PO QDAY Qty: 90 RF: 4 gentamicin 0.1 % cream 1 applic TOPICAL DIRECTED Qty: 15 RF: 11 calcium acetate 667 mg tablet 667 mg PO TID Qty: 270 RF: 4 amlodipine 2.5 MG tablet 5 mg PO BID RF: 0 prednisone 5 MG tablet 5 mg PO DAILY RF: 0 tacrolimus 0.5 mg Capsule 1.5 mg PO QAM RF: 0 ondansetron HCl [Zofran] 4 mg tablet 4 mg PO Q6H PRN (Reason: nausea and vomiting) Qty: 20 RF: 0 furosemide 40 mg Tablet 40 mg PO QAM RF: 0 cinacalcet 30 mg Tablet 30 mg PO QDAY RF: 0 potassium chloride 20 mEq Tablet Extended Release 10 meq PO QDAY RF: 0 tacrolimus 1 mg Capsule 2 mg PO QPM RF: 0 losartan 25 mg Tablet 25 mg PO BID RF: 0 Discontinued pantoprazole [Protonix] 40 mg Tablet,Delayed Release (Dr/Ec) 40 mg PO PRN PRN (Reason: Nausea) RF: 0 metoprolol tartrate [Lopressor] 50 mg Tablet 5 mg PO BID RF: 0 lansoprazole 30 mg Tablet,Disintegrat, Delay Rel 40 mg PO QDAY RF: 0 Follow Up Plan Follow up with: Olga Noonan ARNP [Nurse Practitioner] - 09/27/20 1:00 pm Mainor Mercedes MD [Primary Care Provider] - 09/22/20 10:45 am Patient Disposition: Home, Self-Care Discharge Orders: Discharge Order (Routine); Ordered 09/19/20 Ordered By: Nick JIMENEZ VTE Deep Vein Thrombosis/Pulmonary Embolism Present on Admission: No
[2020-09-21 11:57] LABS: Tacrolimus (Prograf)-SO 7.3 mcg/L
== END 2020-09-19 13:00 | disposition home or self-care (01) | DRG 377 ==
LOC: ED 13:20 → MEDSUR 20:57
PROVIDERS: ADMIT Internal Medicine; ATTEND Internal Medicine